=== PATIENT | male | born 1955 | race African-American/Black ===

== ENCOUNTER 2016-09-19 15:30 | Inpatient (IN) | payer OTHER ==
[~2016-09-19] VITALS: Ht 182.9 cm; Wt 91.3 kg
[~2016-09-19 15:30] MED LIST: CHOL100043 PO; HYDR-4150 PO; HYDR-656 PO; MIRT7.5T8 PO; MULT1CAP33 PO; MUSCLE RELAXER; PRED50TA PO; PTSD MED
[2016-09-19 15:42] VITALS: PULSE 115; RESP 20; O2SAT 98
--- NOTE | 2016-09-19 16:03 | ED.REPORT ---
HPI-General Illness Date of Service Sep 19, 2016 ED Provider: Percy Mixon MD 61 y/o male with a hx of anxiety, PTSD, meth-use and chronic back pain presents to the ED complaining of shortness of breath, onset just prior to arrival. Associated sx include fever for "a couple of weeks", cough with green sputum, fatigue, dysuria, nausea and vomiting. The pt states "I have to make myself vomit". Denies rash and injecting drugs. He used Meth prior to arrival. He can not recall how he arrived at the ED. Nursing Notes Stated Complaint: SUICIDAL Chief Complaint: Psychiatric Complaint Nursing Notes Reviewed: Yes (Farmol meds not reconciled) Allergies: Coded Allergies: Sulfa (Sulfonamide Antibiotics) (Verified Allergy, Intermediate, itch, ) Uncoded Allergies: CONTRAST DYE (Allergy, Severe, throat swelling, 11/08/14) Scheduled Cholecalciferol (Vitamin D3) (Vitamin D) 1,000 Unit Tablet 0 PO DAILY Mirtazapine (Mirtazapine) 7.5 Mg Tablet 0 PO HS Multivitamin (Multivitamins) 1 Each Capsule 1 EACH PO DAILY Prednisone (PredniSONE) 50 Mg Tablet 50 MG PO DAILY Scheduled PRN Hydrocodone/Acetaminophen ([place] 5-325 Tablet) 1 Each Tablet 1 EACH PO q4- 6hours PRN PRN For Pain hydrOXYzine Hcl (HydrOXYzine Hcl) 25 Mg Tablet 0 PO HS PRN PRN For Nausea Miscellaneous Medications ([Muscle Relaxer]) ([Ptsd Med]) General Time Seen by MD: 15:53 Chief Complaint Other (unclear, patient poor historian - he does complain of cough) Hx Obtained From: Patient Arrived By: Walk-in Sudden in Onset?: No Onset Occurred: Just prior to arrival Symptom Duration: Since onset Location: : Back (Chronic) Quality: Painful Radiation: : Does not radiate Severity: Current: Moderate Severity: Maximum: Moderate Recent Healthcare: No recent doctor visit Similar Sx Previous: No Past Medical History Past Medical History Anxiety, [facility] HepC Reports: Depression Past Surgical History Denies Smoking History Current Every Day Smoker Social History Drug Use: Meth (smoked today) Ambulatory Status Wheelchair Review of Systems Full Review of Systems Constitutional: Reports: Fatigue, Fever Respiratory: Reports: Prod cough, green, Shortness of breath GI: Reports: Nausea, Vomiting Male: Reports Dysuria Musculoskeletal: Reports: Back pain (chronic) Skin: Denies Rash Complete sys rev & neg: except as marked. Physical Exam Vital Signs Vital Signs Date Time Temp Pulse Resp B/P Pulse Ox O2 Delivery O2 Flow Rate FiO2 09/19/16 21:58 37.6 101 18 107/60 97 Room Air 09/19/16 19:03 95 111/65 09/19/16 19:01 37.6 97 Room Air 09/19/16 15:42 39 115 20 98 Room Air Initial VS: Reviewed, Vital signs abnormal Head / Eyes: Atraumatic, Normocephalic Neck: Supple, Full range of motion Extremities: Vascular intact, Neuro intact, No swelling, No tenderness Skin: Warm, Dry, No cyanosis Neurologic: Alert General/Constitutional: Awake Behavior: Positive: Anxious, Restless Appearance / Presentation: Positive: Cachectic Pt is fidgety and restless with increased psychomotor activity and not making eye contact. Bizzare behavior, inappropriate social skills, does not make eye contract. Makes sudden odd movements and flops around the exam room dramatically. Appears to respond to internal stimuli and has conversations with himself once we leave exam room. Curses and shouts inappropriately and at random intervals. Disorganized historian but gives credible but limited answers upon pressing. Oriented to time and place. Too agitated to place an IV. The restless is consistent with methamphetamine toxicity (patient admits to smoking, denies IVDA) Nose: Positive: Discharge nasal bloody (mild) Respiratory / Chest: Atraumatic, Breath sounds NL, Breath sounds = bilat Coughing Cardiovascular: Regular rhythm, Heart sounds NL, No gallop, No murmurs, No rubs Heart Rate / Rhythm: Positive: Tachycardia No edema Skin: Atraumatic, Color NL, No rash, Warm, Dry, Intact No track mckee or overt cellulitis. Psychiatric: Not homicidal, No hallucinations Abnormal Mood/Affect: Positive: Inappropriate, Labile Abnormal Thinking / Perception: Positive: Hallucinations, auditory (suspected, patient appears to be conversing with himself), Insight abnormal, Judgment abnormal Limited insight. Acting strange, consistent with meth intoxication. Responding to internal stimuli and having conversations with himself that consist of 4 letter words. Patient does not endorse SI or HI Interpretation & Diagnostics Lab Results Interpretation Result Diagram: 09/19/16 1735 09/19/16 1735 Test 09/19/16 17:35 White Blood Count 13.7th/mm3 (3.8-10.1) Red Blood Count 5.39mil/mm3 (4.40-5.80) Hemoglobin 13.6g/dL (13.8-17.2) Hematocrit 39.5% (41.0-50.0) Mean Corpuscular Volume 73.3fL (81-100) Mean Corpuscular Hemoglobin 25.2pg (27.0-35.0) Mean Corpuscular Hemoglobin Concent 34.4% (32.0-37.0) Red Cell Distribution Width 14.7% (12.3-15.4) Platelet Count 369bil/L (150-400) Neutrophils (%) (Auto) 79.8% (40-74) Lymphocytes (%) (Auto) 11.7% (14-46) Monocytes (%) (Auto) 8.0% (4-12) Eosinophils (%) (Auto) 0.1% (0-5) Basophils (%) (Auto) 0.1% (0-3) Sodium Level 130mEq/L (134-144) Potassium Level 3.9mEq/L (3.5-5.2) Chloride Level 94mEq/L (97-108) Carbon Dioxide Level 21mmol/L (18-29) Blood Urea Nitrogen 15mg/dL (6-24) Creatinine 0.75mg/dL (0.76-1.27) Estimat Glomerular Filtration Rate 113mL/min (>59) Glucose Level 104mg/dL (60-99) Lactic Acid Level 1.1mmol/L (0.4-2.0) Calcium Level 9.5mg/dL (8.5-10.1) Total Bilirubin 0.9mg/dL (0.0-1.2) Aspartate Amino Transf (AST/SGOT) 19U/L (0-50) Alanine Aminotransferase (ALT/SGPT) 12U/L (0-44) Alkaline Phosphatase 98U/L (25-160) Total Protein 7.8g/dL (6.4-8.4) Albumin 3.8g/dL (3.4-5.0) Thyroid Stimulating Hormone (TSH) 0.718uIU/mL (0.450-4.500) X-Ray Chest Interpretation Chest Xray Interpretation: IMPRESSION: Normal for age, source of fever is not seen. Dictated by: Gray Jacques M.D. on 09/19/2016 at 17:00 Approved by: Gray Jacques M.D. on 09/19/2016 at 17:01 View: Portable, 1 view Interpretation / Wet Read by: Interpret - Radiologist Procedures Femoral Blood Draw Time: 1817 Skin prep: Chlorhexidine Re-Eval/Medical Decision Med Decision/Clinical Course This is a 61-year-old male presented to triage (it is not clear how he got here by what route) as agitated restless and off and was brought back to her room. He complains of a cough, but he is very disorganized, restless, pacing individual. He admits to taking some meth before coming in, he reports he smokes and does not inject. He has hacking cough present but is not tachypneic or dyspneic. He is cachectic and frail. He talks about as a [facility], but is again a very challenging historian to get much information. His initial vitals suggest a low-grade temperature, but were challenging to obtain. Because of the possible fever, because of his clinical intoxication, and his hacking cough, attempted to place an IV-but the patient certainly too agitated permit this. Ultimately he received chemical sedation with 2 lorazepam , 5 mg's a Haldol-and was properly sedated. At this point IV was placed. Repeat vitals were obtained, and no fever was identified. Chest x-rays obtained is negative for infiltrate. Blood work revealed marginal leukocytosis , this could be simply the methamphetamines, could be marginal signs of infection-again no armando infiltrate is evident. His labs were otherwise normal. The patient remained sedated but stable throughout. DESK MONITOR has been obtaining [facility] as obtain a [facility] list. However the patient still sedated after 7 hours, still sleeping and not able to give a history. At this point is being turned over to oncoming provider pending further metabolization and reevaluation. Serial vitals have failed to demonstrate a temperature. I am not finding evidence of a bacterial infection or acute medical issue. As a strong suspicion that his psychosis and agitation are secondary to substance abuse, but the bottom line is still need reevaluation to see if he is clearing over time and to allow better assessment. Source of Hx: Old records Time of Eval: 17:30 Patient Status: Condition improved Re-Evaluation/Progress Note: Sleeping. Repeat vitals normal - no temp, nl HR Time of Eval: 20:45 Re-Evaluation/Progress Note: Still sleeping Counseled Regarding: Diagnosis, Lab results, Need for follow-up, When/why to return to ED Discharge & Departure Shift Change Sign-Out Patient Care Transferred: Yes Discussed Complaint(s): Yes Laboratory Evaluation: Back, reviewed by me (blood cultures pending) Imaging Studies: Imaging discussed Primary Impression: Psychosis Psychosis type: unspecified psychosis type Qualified Code: F29 - Unspecified psychosis not due to a substance or known physiological condition Additional Impressions: Methamphetamine abuse URI (upper respiratory infection) URI type: unspecified URI Qualified Code: J06.9 - Acute upper respiratory infection, unspecified Disposition: Home Discharge Condition All VS Reviewed: Yes Referrals: OTHER,PHYSICIAN (PCP) (Family) Care Transferred to: Dr. Tran Care Transferred at: 23:00 Scribe Attestation Portions of this note were transcribed by Chasity Parker. I, , personally performed the history, physical exam and medical decision-making;I reviewed and confirmed the accuracy of the information in the transcribed note. Signed by Swati Zamarripa. 09/19/16 22:57 Percy Mixon MD Sep 19, 2016 16:02 Chasity Parker Sep 19, 2016 16:10
[2016-09-19] MEDS ORDERED: 0.9% Sodium Chloride 1,000 ML IV ONE (16:05)
[2016-09-19] MEDS ORDERED: Haloperidol 5 mg/mL Inj IM ONE (16:10)
--- NOTE | 2016-09-19 17:02 | DRSVH ---
PROCEDURE: X-RAY CHEST ONE VIEW, PORTABLE ([id number]) INDICATIONS: fever TECHNIQUE: One view of the chest was acquired. COMPARISON: None. FINDINGS: Surgical changes and devices: None. Lungs and pleura: No pleural effusions or pneumothorax. Lungs are clear. Mediastinum: Mediastinal contours appear normal. Heart size is normal. Bones and chest wall: No suspicious bony lesions. Overlying soft tissues appear unremarkable. IMPRESSION: Normal for age, source of fever is not seen. Dictated by: Gray Jacques M.D. on 09/19/2016 at 17:00 Approved by: Gray Jacques M.D. on 09/19/2016 at 17:01
[2016-09-19 17:59] LABS: BASOPHILS % (AUTO) 0.1 % (0-3); EOSINOPHILS % (AUTO) 0.1 % (0-5)
[2016-09-19 18:01] LABS: Mean Corpuscular Hemoglobin 25.2 pg (27.0-35.0); Mean Corpuscular Volume 73.3 fL (81-100); NEUTROPHILS % (AUTO) 79.8 % (40-74); Platelet Count 369 bil/L (150-400)
[2016-09-19 19:01] VITALS: O2SAT 97
[2016-09-19 19:03] VITALS: BP 111/65; PULSE 95
[2016-09-19 21:58] VITALS: BP 107/60; PULSE 101; RESP 18; O2SAT 97
[2016-09-20 02:34] VITALS: BP 112/66; PULSE 99; RESP 18; O2SAT 99
[2016-09-20 04:13] VITALS: BP 105/65; PULSE 84; RESP 18; O2SAT 99
[2016-09-20 06:01] VITALS: BP 104/68; PULSE 81; RESP 18; O2SAT 97
[2016-09-20] MEDS ORDERED: Azithromycin Inj 500 MG in Dextrose 5% w/Vial Mate 250 ML IV ONE (07:35)
[2016-09-20] MEDS ORDERED: cefTRIAXone Inj 2,000 MG in Dextrose 5% Minibag Plus 50 ML IV ONE (07:35)
[2016-09-20 08:01] LABS: BASOPHILS % (AUTO) 0.2 % (0-3); EOSINOPHILS % (AUTO) 0.4 % (0-5); Mean Corpuscular Hemoglobin 25.8 pg (27.0-35.0); Mean Corpuscular Volume 76.6 fL (81-100); NEUTROPHILS % (AUTO) 77.6 % (40-74); Platelet Count 347 bil/L (150-400)
[2016-09-20 08:26] LABS: APPEARANCE,URINE HAZY (CLEAR,HAZY); COLOR,URINE YELLOW (YELLOW); OCCULT BLOOD,URINE NEGATIVE (NEGATIVE); UROBILINOGEN,URINE NORMAL (NORMAL)
[2016-09-20 12:42] VITALS: BP 99/63; PULSE 91; O2SAT 98
[2016-09-20] MEDS ORDERED: Benzocaine-Menthol Lozenge 2/Pkg PO PRN (13:50)
[2016-09-20] MEDS ORDERED: Magnesium Hydroxide 10 mL Oral Concentration PO PRN (13:50)
[2016-09-20] MEDS ORDERED: Alum-Mag Hydrox-Simeth 30 mL Suspension PO PRN (13:50)
[2016-09-20] MEDS ORDERED: LORazepam 1 mg Tablet PO PRN (13:55)
[2016-09-20 20:36] VITALS: BP 106/71; PULSE 94; RESP 20
[2016-09-21 00:26] VITALS: BP 102/62; PULSE 81; RESP 22
[2016-09-21] MEDS ORDERED: HYDR-4003 PO (07:14)
[2016-09-21 12:18] VITALS: BP 113/71; PULSE 91; RESP 14
[2016-09-21 13:00] VITALS: BP 113/71; PULSE 91; RESP 14
[2016-09-21] MEDS: Thiamine 100 mg/mL 2 mL Inj IM SCH (15:42)
[2016-09-21] MEDS ORDERED: LIDO15CR9 TP (18:23)
[2016-09-21] MEDS ORDERED: HYDR50TA76 PO (18:23)
[2016-09-21] MEDS ORDERED: MULT-620 PO (18:23)
[2016-09-21] MEDS ORDERED: NAPR250T PO (18:23)
[2016-09-21] MEDS ORDERED: SILD100T PO (18:23)
[2016-09-21] MEDS ORDERED: MIRT30TA6 PO (18:23)
[2016-09-21 20:14] VITALS: BP 119/80; PULSE 86; RESP 14
--- NOTE | 2016-09-21 20:14 | HP ---
[address] [address] HISTORY AND PHYSICAL PATIENT: REINA KRUSE : 1955 MR#: [id number] ADMIT: 09/20/2016 JOB ID: [id number] DATE OF ADMISSION: 09/20/2016 IDENTIFICATION OF PATIENT: The patient is a 61-year-old male from [facility], who was admitted on a voluntary basis through the emergency department with significant concern of suicidal ideation with plan and intent to step in front of traffic or to use his guns that are evidently put away. The patient reportedly presented under the influence of methamphetamine with open identification of usage on a daily basis over the past 1-2 years, also concomitant usage of THC, and alcohol, drinking 4-5 half pints per day. CHIEF COMPLAINT: "I really do not want to talk about it." This is per patient report. HISTORY OF PRESENT ILLNESS: As stated above, the patient is a 61-year-old male who was admitted on a voluntary basis due to a significant altered mental status, concerns of safety including suicidal ideation with intent and plan, per his own report, with social science professor through the emergency department. The patient has been identified as homeless over the past 8-9 months. He [place] He states that he is , but his has placed a restraining order. He did admit to usage of methamphetamine on a daily basis with inhalant usage primary. No IV injection. He denies any history of heroin or further opiate abuse. He did admit to consuming 4-5 half pints per day. He reports his last drink was within the past 24 hours. His U tox screen was positive for methamphetamine. In reviewing further history, the patient evidently is 90% connected with service benefits. He does have a history of previous enlistment in the [employer]. He [facility] with [facility] contact in November 2015, per social science professor report. On interview with myself, the patient essentially was unwilling to complete the exam. He made the repeated identification that he has already spoken to nurses. He does not want to talk about the details. He reportedly has been sleeping in his room since his arrival and has been med compliant. PAST MEDICAL HISTORY: Substantial for allergies to: 1. CONTRAST DYE. 2. CONTRAST MEDIA. 3. SULFA. He reportedly has a history of back injury with chronic pain. CURRENT MEDICATIONS: Include: 1. Hydrocodone 5/325 one tablet q.4 h. p.r.n. 2. Remeron 7.5 mg at h.s. 3. Hydroxyzine 25 mg p.r.n. 4. Prednisone 50 mg daily. 5. Vitamin D 3 1000 units daily. 6. Prazosin 1 mg q.h.s. 7. Harvoni 90 mg tablets one daily. 8. Sovaldi 40 mg tablets one daily. PAST MEDICAL HISTORY: He reportedly has a previous history of hepatitis C, per report. Other medical history was reviewed through documentation through the ED and I agree with findings. PAST PSYCHIATRIC HISTORY: Substantial for [facility] connections. Last visit in November 2015. He reportedly has a previous history of PTSD, depression and substance use issues. SOCIAL HISTORY: As identified above. The patient does admit to daily usage of nicotine, 1 to 1-1/2 packs per day as well. Abuse history was not reviewed. Trauma history not reviewed. FAMILY HISTORY: Deferred. DEVELOPMENTAL HISTORY: Deferred. MENTAL STATUS EXAM: General appearance: The patient made no significant eye contact. He was unwilling to be interviewed. He identified the above history and much of the information was gathered through charting. Releases will be signed. His speech was limited. Mood was depressed with anxious features. His affect was blunted. His thought process shows no evidence of racing thoughts, flight of ideas, loose or disconnected thinking. Thought content: There was open identification of suicidal ideation, per staff report, with intent and plan of walking into traffic or using a gun which evidently is locked up. There was no evidence of paranoia, hallucinations, delusions. He was alert and oriented to time and place. His attention and concentration are poor. Insight and judgment are poor. IMPRESSIONS: Anna I 1. Postraumatic stress disorder, chronic. 2. Major depressive disorder, recurrent type, nonpsychotic. 3. Polysubstance use disorder including methamphetamine and THC. 4. Alcohol use disorder, moderate to severe. 5. Rule out substance-induced mood disorder. Anna IIDeferred. Anna III1. History of chronic pain. 2. History of hepatitis C. Anna IVStressors are noted for economic difficulties, unemployment, chronic mental health issues and substance use issues. Anna VGlobal assessment of functioning current 25. PLAN: 1. Recommendation is for continuation of scheduled doses of Seroquel 50 mg b.i.d., 100 mg q.4 h. p.r.n. for agitation. 2. Ativan to scheduled dosing of 1 mg t.i.d. for two days, then 1 mg b.i.d. for two days, then 1 mg q.h.s. for two days, for tapering potential alcohol withdrawal. 3. Recommendations for releases to be signed for the [facility] for further review of his current medications with possible reintroduction of doses of Remeron, Prazosin if proven to be beneficial in the past. MTDD
[2016-09-21] MEDS: LORazepam 1 mg Tablet PO SCH (20:17)
[2016-09-22] MEDS: Thiamine 100 mg/mL 2 mL Inj IM SCH (08:30)
[2016-09-22] MEDS: LORazepam 1 mg Tablet PO SCH ×3 (08:38→20:34)
[2016-09-22] MEDS: Lidocaine Topical 5% Patch TOPICAL SCH (13:25)
[2016-09-22] MEDS: Fluticasone 0.05% 15 Spray/2 Gm 16 Gm Nasal Spray NASAL SCH ×2 (13:25→20:34)
[2016-09-22] MEDS: Amoxicillin-Clav 875-125 mg Tablet PO SCH ×2 (13:26→20:34)
[2016-09-22 13:30] VITALS: BP 114/78; PULSE 71; RESP 16
--- NOTE | 2016-09-22 14:16 | PROG NOTE ---
[address] [address] PROGRESS NOTE PATIENT: REINA KRUSE : 1955 MR#: [id number] ADMIT: 09/20/2016 JOB ID: [id number] DATE: 09/22/2016 CHIEF COMPLAINT: "I really need something for my sinuses, I have had green sputum for over a month." This per patient report. HISTORY OF PRESENT ILLNESS: As stated above, the patient did identify significant concern of possible sinus infection. He indicated that he has had significant green mucous discharge with periodic fevers over the past month. I have agreed to initiate doses of Flonase and Augmentin. In meeting with myself, the patient was very brief. He indicated that he wants to be back on his medications previously prescribed through the [facility]. He indicated that he has no intent at transferring his service of care from the [facility] to local options. He states that he will commute in for appointments as needed. He reports that he did get a good night of sleep. He has participated in mental activities at this time. He is aware that we are looking at possible options of housing based on his current status of homelessness and he is willing to consider options of obtaining half-way care in [place]. He readily identifies usage of methamphetamine, cocaine recently, but denies any intent or desire to undergo a chemical dependency treatment. OBJECTIVE: On mental status examination, he makes intermittent eye contact. He is somewhat irritable on approach. His speech is pressured. His mood is dysphoric. His affect is irritable, labile. His thought process shows no evidence of racing thoughts, flight of ideas, loose or disconnected thinking. Thought content: He denied any evidence of current suicidal ideation, intent or plan. When he was admitted, he did have significant thoughts of taking an overdose, using a gun or jumping off a bridge. He denies any active homicidal ideation. He denies any active hallucinations, delusions. He was alert, oriented to time and place. His attention and concentration are fleeting. Insight and judgment are poor. PHYSICAL EXAM: Vital signs of current. Temperature is 37, pulse 86, respirations 14, BP 119/80. MEDICATION REVIEW: Includes: 1. Ativan taper due to contributory history of probable alcohol withdrawal. He is on t.i.d. for another 24 hours with intent to taper thereafter. 2. Vitamin B 1 injections 100 mg. He is on day two. 3. Seroquel 100 mg q.4 hours p.r.n. 4. Seroquel 50 mg b.i.d. ASSESSMENT: AXIS I 1. Posttraumatic stress disorder, chronic. 2. Polysubstance use disorder including both methamphetamine and cocaine. 3. Alcohol use disorder, moderate, in a controlled setting. 4. Rule out alcohol withdrawal, uncomplicated. AXIS II Deferred. AXIS III 1. History of hepatitis C. 2. Chronic sinusitis. AXIS IV Stressors are noted for economic difficulties, loss of primary support system, homelessness, chronic substance abuse and mental health issues. AXIS V Global assessment of functioning of current 35. PLANS: 1. Recommendations for introductions of Flonase 1 spray b.i.d. and Augmentin 875 mg b.i.d. 2. Recommendations for reintroduction of Remeron 15 mg q.h.s., with further titration to follow. 3. Continuation of Ativan taper to avoid alcohol withdrawal. 4. Continuation of thiamine with one more injection beginning tomorrow. 5. Discontinuation of scheduled doses of Seroquel. 6. Continuation of p.r.n. doses of Seroquel for agitation. 7. Recommendations for consultation with case management for referrals to the [facility] to follow. [facility]
[2016-09-23] MEDS: LORazepam 1 mg Tablet PO SCH ×3 (05:04→21:41)
[2016-09-23] MEDS: Fluticasone 0.05% 15 Spray/2 Gm 16 Gm Nasal Spray NASAL SCH ×2 (08:28→21:41)
[2016-09-23] MEDS: Amoxicillin-Clav 875-125 mg Tablet PO SCH ×2 (08:28→21:40)
[2016-09-23] MEDS: Lidocaine Topical 5% Patch TOPICAL SCH (08:30)
[2016-09-23] MEDS: Thiamine 100 mg/mL 2 mL Inj IM SCH (08:31)
[2016-09-23 13:02] VITALS: BP 115/77; PULSE 85; RESP 16
--- NOTE | 2016-09-23 13:47 | PROG NOTE ---
[address] [address] PROGRESS NOTE PATIENT: REINA KRUSE : 1955 MR#: [id number] ADMIT: 09/20/2016 JOB ID: [id number] DATE: 09/23/2016 CHIEF COMPLAINT: "I think it's a good idea." This is per patient report. This is in patient's reference to going on to chemical dependency treatment. HISTORY OF PRESENT ILLNESS: As stated above, the patient was in agreement of advancing into a chemical dependency treatment program. He indicated, however, that he would preferred to go to [place] via the [facility], [facility]. He was given options of consideration of referrals for a teen challenge in [place] as well and indicated that he had spoken to the caser shoe parts about such last evening. He was requesting re-initiation of doses of Vicodin. However, I have informed him and nursing staff that this was discontinued through the [facility] and I would not authorize. He was given options of Lidoderm patch and agreed to implement. OBJECTIVE: On mental status examination, he makes no significant eye contact. He continues to be mildly irritable and clearly is going through continuation of withdrawal with noted shaking, nausea, and at times he does get chills as his reference. His mood is notably depressed. Affect is blunted. His thought process shows no evidence of racing thoughts, flight of ideas, loose or disconnected thinking. His thought content, he denied any evidence of expressed suicidal intent or plan at this time. He indicated that he is open to advancing into chemical dependency treatment and that it would keep him off the streets. He denied any active hallucinations, delusions. He was alert, oriented to time and place. Attention and concentration are fair. Insight and judgment are poor. PHYSICAL EXAM: Vital signs of current. Temperature is 36.8, pulse 85, respirations 16, BP 115/77. MEDICATION REVIEW: Includes: 1. Tapering doses of Ativan at 1 mg b.i.d. 2. Remeron 15 mg q.h.s. 3. Flonase 1 spray b.i.d. 4. Augmentin 875 mg b.i.d. 5. Lidocaine patch daily. 6. Thiamine IM 100 mg daily with discontinuation as of today. ASSESSMENT: AXIS I 1. Posttraumatic stress disorder, chronic. 2. Alcohol use disorder moderate to severe in a controlled environment. 3. Alcohol withdrawal, uncomplicated. AXIS II Cluster B personality traits. AXIS III 1. History of hepatitis C. 2. Chronic pain. 3. Sinus infection. AXIS IV Stressors are noted for chronic substance abuse, alcohol use and chronic mental health issues. AXIS V Global assessment of functioning of current 35. PLANS: 1. Recommendations for continuation of tapering doses of Ativan. 2. Recommendations for titration of Remeron beginning tomorrow at 30 mg q.h.s. 3. Continuation of pursuit of chemical dependency treatment options through either the [facility] system or teen challenge to follow. 4. Discontinuation of thiamine with transition to oral doses.
[2016-09-23] MEDS: hydrOXYzine Pamoate 25 mg Capsule PO PRN (21:47)
[2016-09-24] MEDS: Fluticasone 0.05% 15 Spray/2 Gm 16 Gm Nasal Spray NASAL SCH ×2 (08:30→20:37)
[2016-09-24] MEDS: Amoxicillin-Clav 875-125 mg Tablet PO SCH ×2 (08:30→20:37)
[2016-09-24] MEDS: LORazepam 1 mg Tablet PO SCH ×2 (08:30→20:37)
[2016-09-24] MEDS: Lidocaine Topical 5% Patch TOPICAL SCH (08:32)
[2016-09-24 13:22] VITALS: BP 118/82; PULSE 96; RESP 16
--- NOTE | 2016-09-24 15:33 | PROG NOTE ---
[address] [address] PROGRESS NOTE PATIENT: REINA KRUSE : 1955 MR#: [id number] ADMIT: 09/20/2016 JOB ID: [id number] DATE: 09/24/2016 CHIEF COMPLAINT: "I would prefer to go to [facility], it is the only one that I have successfully graduated from before. I feel most comfortable around veterans." HISTORY OF PRESENT ILLNESS: As stated above, the patient did identify that he is hopeful that we can transition through chemical dependency treatment at [facility]. A call has been placed with the bottle caser. He did indicate that he is open to alternatives including [facility] of [place] as well but he indicates that he would prefer [facility] first. He reportedly has been participating in activities on the unit. He continues to experience some difficulties with mild withdrawal sensations including hot and cold spells. His vital signs remained consistent and no significant elevation noted. He is on a continuation of tapering doses of Ativan. OBJECTIVE: On mental status examination, he was cooperative, polite. He maintained good eye contact. His speech was of normal tone, frequency and volume. His mood is depressed. His affect is congruent. His thought process shows no evidence of random flight of ideas, loose or disconnected thinking. Thought content: He admitted to fleeting thoughts of suicide when thinking about leaving the hospital. He reports that he would not do anything in the hospital setting. His mood is depressed. His affect is congruent. His thought process shows no evidence of racing thoughts, flight of ideas, loose or disconnected thinking. Thought content: He denies any evidence of current homicidal ideation. He admits to continuation of difficulties with some suicidal thoughts as noted. He denies any active hallucinations, delusions. He was alert, oriented to time and place. Attention and concentration intact. Memory intact in the short term, termite renewal inspector, recent. Insight and judgment are fair. PHYSICAL EXAM: Vital signs are current. Temperature is 36.2, pulse 96, respirations 16, BP 118/82. MEDICATION REVIEW: Includes: 1. Ativan 1 mg b.i.d. on a continuation of taper. 2. Remeron 15 mg q.h.s. 3. Thiamine 100 mg daily. 4. Augmentin 875 mg b.i.d. 5. Flonase 1 puff b.i.d. ASSESSMENT: AXIS I 1. Posttraumatic stress disorder, chronic. 2. Major depressive disorder, recurrent type, nonpsychotic. 3. Alcohol use disorder in a controlled setting, moderate to severe. 4. Polysubstance use disorder including methamphetamine and cocaine. AXIS II Deferred. AXIS III History of sinus infection. AXIS IV Stressors are noted for transition of life, chronic substance use, alcohol use and mental health disorder. AXIS V Global assessment of functioning of current 30. PLANS: 1. Recommendations for continuation of taper of Ativan. 2. Continuation of Remeron with increased doses to 30 mg tonight. 3. Discontinuation of p.r.n. doses of Seroquel. 4. Continuation of pursuit of chemical dependency treatment per [facility] and referrals system. Calls have been placed. Hopefully things will be arranged by Tuesday of next week.
[2016-09-25] MEDS: LORazepam 1 mg Tablet PO SCH ×2 (08:11→20:08)
[2016-09-25] MEDS: Fluticasone 0.05% 15 Spray/2 Gm 16 Gm Nasal Spray NASAL SCH ×2 (08:12→20:08)
[2016-09-25] MEDS: Amoxicillin-Clav 875-125 mg Tablet PO SCH ×2 (08:12→20:09)
[2016-09-25] MEDS: Lidocaine Topical 5% Patch TOPICAL SCH ×2 (08:21→20:10)
--- NOTE | 2016-09-25 13:29 | PROG NOTE ---
[address] [address] PROGRESS NOTE PATIENT: REINA KRUSE : 1955 MR#: [id number] ADMIT: 09/20/2016 JOB ID: [id number] DATE: 09/25/2016 CHIEF COMPLAINT: "I am supposed to talk to them at 9 o'clock on Tuesday. This is per patient report in reference to speaking with [place]. I have reviewed with the patient that the resident service coordinator for [facility], Dilan Dorman, indicating that the disease case manager, will be placing a call at 9 o'clock on Tuesday to inquire about possibility of advancement. The patient states that he is hopeful and stating that he is still open to options including [facility] in [place] if there are no beds available. He has requested with nursing staff re-initiation of doses of Prazosin based on beneficial effects of the medication in the past as well. He indicated that last evening he was able to sleep through the night. Denied any evidence of current side effects. Denied any difficulties with nightmare activity. He reportedly has indicated that he would like to use the Lidoderm patch only as a p.r.n., not as a scheduled as well. OBJECTIVE: On mental status examination, the patient was bright, cooperative, interactive. He maintained good eye contact throughout. He indicated that his withdrawal sensations are decreasing and appreciated the continuation of taper of Ativan. He is currently dispensed 1 mg b.i.d. with last dose noted tonight and then switch over to 1 mg q.h.s. He denies any evidence of acute distress. His speech was of normal tone, frequency and volume. His mood was neutral. Affect was congruent. His thought process shows no evidence of current suicidal or homicidal ideation. No evidence of active hallucinations, delusions. He was alert, oriented to time and place. Attention and concentration intact. Memory intact in the short term, senior care, recent. Insight and judgment are fair. PHYSICAL EXAM: Vital signs are current. Temperature is 36.2, pulse 96, respirations 16, BP 118/82. MEDICATION REVIEW: Includes: 1. Ativan 1 mg b.i.d., last dose tonight with transition to 1 mg q.h.s. beginning on the . 2. Lidocaine patch 1 patch daily. 3. Remeron 30 mg q.h.s. 4. Thiamine 100 mg daily. 5. Flonase 1 spray b.i.d. 6. Augmentin 875 mg 1 tablet b.i.d. 7. P.r.n. usage of Vistaril. ASSESSMENT: AXIS I 1. Posttraumatic stress disorder, chronic. 2. Major depressive disorder, recurrent type, nonpsychotic. 3. Polysubstance use disorder including methamphetamine and THC. 4. Alcohol use disorder moderate to severe. 5. Substance induced mood disorder. AXIS II Deferred. AXIS III 1. History of chronic pain. 2. History of hepatitis C. AXIS IV Stressors are noted for economic difficulties, unemployment, chronic mental health issues and substance abuse. AXIS V Global assessment of functioning of current 30. PLANS: 1. Recommendations for re-initiation of Prazosin 2 mg q.h.s. 2. Discontinuation of Seroquel. 3. Continuation of taper and eventual discontinuation of Ativan. 4. Follow up call to be placed with the [facility] on Tuesday for clarification of possible bed availability.
[2016-09-25] MEDS ORDERED: guaiFENesin 20 mg/mL 10 mL Syrup PO PRN (21:20)
[2016-09-26] MEDS: Amoxicillin-Clav 875-125 mg Tablet PO SCH ×2 (09:20→20:56)
[2016-09-26] MEDS: Fluticasone 0.05% 15 Spray/2 Gm 16 Gm Nasal Spray NASAL SCH ×2 (09:23→20:56)
[2016-09-26] MEDS: hydrOXYzine Pamoate 25 mg Capsule PO PRN ×3 (11:51→20:59)
[2016-09-26] MEDS: Multivit-Miner-Folic Acid-Iron Tablet PO SCH (11:51)
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
[2016-09-26 13:48] VITALS: BP 126/83; PULSE 101; RESP 16
[2016-09-26] MEDS: LORazepam 1 mg Tablet PO SCH (20:57)
[2016-09-26] MEDS: TerBINafine 1% 15 Gm Cream TOPICAL SCH (20:57)
[2016-09-26] MEDS: Lidocaine Topical 5% Patch TOPICAL SCH (20:58)
[2016-09-27 08:15] VITALS: BP 107/72; PULSE 81; RESP 18
[2016-09-27] MEDS: Fluticasone 0.05% 15 Spray/2 Gm 16 Gm Nasal Spray NASAL SCH ×2 (08:27→20:54)
[2016-09-27] MEDS: Amoxicillin-Clav 875-125 mg Tablet PO SCH ×2 (08:27→20:55)
[2016-09-27] MEDS: Multivit-Miner-Folic Acid-Iron Tablet PO SCH (08:27)
[2016-09-27] MEDS: TerBINafine 1% 15 Gm Cream TOPICAL SCH ×2 (08:28→20:55)
--- NOTE | 2016-09-27 18:43 | PROG NOTE ---
[address] [address] PROGRESS NOTE PATIENT: REINA KRUSE : 1955 MR#: [id number] ADMIT: 09/20/2016 JOB ID: [id number] DATE: 09/27/2016 CHIEF COMPLAINT: "I am still having a lot of problems with anxiety throughout the daytime." This is per patient report. HISTORY OF PRESENT ILLNESS: As stated above, the patient openly identified a continuation of factors of anxiety throughout the daytime hours, stating that he feels restless and worried. He also identified some difficulties with random flashbacks. Discussed further titration of his Prazosin. He is open to such. In addition, he identified some worrisome nature in reference to the plans for discharge. Calls have been placed with the [place] [facility] system about referrals to [facility] and my understanding is that they will be looking at potentials of a [id number] evaluation later on today. MENTAL STATUS EXAM: He made intermittent eye contact. He openly identified some continuation of anxiety with worrisome nature about the planning for discharge. His speech is of normal tone, frequency, and volume. His mood is neutral. Affect was congruent. His thought process shows no evidence of racing thoughts, flight of ideas, loose or disconnected thinking. Thought content: He denied any evidence of current suicidal, homicidal ideation. No evidence of paranoia. No evidence of active hallucinations, delusions. He was alert, oriented to person, place, time, situation. Attention and concentration intact. Memory intact in the short term, prison, recent. Insight and judgment are fair. PHYSICAL EXAMINATION: Vital signs are current. Temperature is 36.4, pulse 101, respirations 16, BP 126/83. MEDICATION REVIEW: 1. Ativan 1 mg q.h.s. Last dose to be given tonight. 2. Lamisil cream one application b.i.d. 3. vitamin 1 tab daily. 4. Lidoderm patch one daily p.r.n. 5. Minipress 2 mg q.h.s. 6. Remeron 30 mg q.h.s. 7. Vitamin D 1 100 mg daily. 8. Flonase 1 spray b.i.d. 9. Augmentin 875 mg b.i.d. 10. Vistaril 50 mg q.4 h. p.r.n. ASSESSMENT: [place] I 1. Major depressive disorder, recurrent type. 2. Posttraumatic stress disorder, chronic. 3. Generalized anxiety disorder. 4. Polysubstance use disorder including methamphetamines and opiates. [place] IICluster B personality traits. [place] III1. History of sinus infection. 2. History of chronic pain. [place] IVStressors are noted for chronic substance use issues, chronic mental health issues. [place] VGlobal assessment of functioning current 35. PLAN: 1. Recommendation is for discontinuation of Vistaril at patient request. He currently indicates that he feels that it is causing more anxiety. 2. Reintroduction of Seroquel 50 mg q.4 h. p.r.n. for anxiety. I have discussed with the patient that ideally he needs to begin using alternative coping skills, that he is not a candidate for any form of benzodiazepine or other addictive substance. 3. Recommendations for continuation of chemical dependency treatment options including [facility] or [facility]. ORALIAD
[2016-09-27] MEDS: LORazepam 1 mg Tablet PO SCH (20:55)
[2016-09-27] MEDS: Lidocaine Topical 5% Patch TOPICAL SCH (21:29)
[2016-09-28] MEDS: Fluticasone 0.05% 15 Spray/2 Gm 16 Gm Nasal Spray NASAL SCH ×2 (08:02→20:37)
[2016-09-28] MEDS: Multivit-Miner-Folic Acid-Iron Tablet PO SCH (08:03)
[2016-09-28] MEDS: TerBINafine 1% 15 Gm Cream TOPICAL SCH ×3 (08:03→20:30)
[2016-09-28] MEDS: Amoxicillin-Clav 875-125 mg Tablet PO SCH ×2 (08:03→20:38)
--- NOTE | 2016-09-28 11:43 | PROG NOTE ---
[address] [address] PROGRESS NOTE PATIENT: REINA KRUSE : 1955 MR#: [id number] ADMIT: 09/20/2016 JOB ID: [id number] DATE: 09/28/2016 CHIEF COMPLAINT: "I had a really bad panic attack this morning." This per patient report. HISTORY OF PRESENT ILLNESS: As stated above, the patient identified that he was experiencing difficulties with anxiety and distress and evidently did receive p.r.n. doses of Seroquel. He indicates that he is feeling much better at this time. He maintained good eye contact throughout. He indicated that he is aware that we are continuing to petition with the [facility] system for possible transfer to [place] for chemical dependency treatment. It is my understanding that the discussion has been held with the social workers at the local office of completing paperwork and applications. The patient currently identifies that he does continue to struggle with anxiety and fears of being discharged knowing that he will ultimately either hurt himself or return back to substances. OBJECTIVE/MENTAL STATUS EXAMINATION: He was quite anxious on approach. He made intermittent eye contact. His speech was of normal tone, frequency, and volume. His mood was anxious. Affect was elevated. His thought process showed no evidence of racing thoughts, flight of ideas, loose or disconnected thinking. Thought content: He denied any evidence of current suicidal, homicidal ideation. He indicated that he could not guarantee that he would not hurt himself if he were to be discharged today indicating that he is fearful that he will either return back to using or walk in front of a vehicle. He denied any active hallucinations, delusions. He was alert, oriented to time and place. Attention and concentration intact. Memory intact in the short term, half-way, recent. Insight and judgment are fair. PHYSICAL EXAMINATION: Vitals signs current: Temperature is 36.5, pulse 81, respirations 18, BP 107/72. MEDICATION REVIEW: Includes: 1. Prazosin 2 mg b.i.d. 2. Seroquel 50 mg q.4 h. p.r.n. 3. Lamisil foot cream one b.i.d. 4. vitamin one tablet daily. 5. Lidoderm patch p.r.n. h.s. 6. Robitussin cough syrup 200 mg q.6 p.r.n. 7. Remeron 30 mg q.h.s. 8. Vitamin B 100 mg daily. 9. Flonase one puff b.i.d. 10. Augmentin 875 b.i.d. ASSESSMENT: AXIS I: 1 1. Posttraumatic stress disorder, chronic. 2. Polysubstance use disorder including methamphetamine/tetrahydrocannabinol. 3. Major depressive disorder, recurrent type, nonpsychotic. AXIS II: Deferred. AXIS III: 1. History of hypertension. 2. History of sinus infection. AXIS IV: Stressors are noted for current economic difficulties. AXIS V: Global Assessment of Functioning current 35. PLANS: 1. Recommendation for continuation of petition for the [facility] placement at [place] for chemical dependency treatment. 2. Continuation of all medications noted with discontinuation of vitamin B 1 based on patient's administration of a vitamin.
[2016-09-28 17:47] VITALS: BP 115/73; PULSE 87; RESP 17
[2016-09-28] MEDS: Lidocaine Topical 5% Patch TOPICAL SCH (20:37)
[2016-09-29] MEDS: TerBINafine 1% 15 Gm Cream TOPICAL SCH ×2 (08:30→20:38)
[2016-09-29] MEDS: Fluticasone 0.05% 15 Spray/2 Gm 16 Gm Nasal Spray NASAL SCH ×2 (08:43→20:37)
[2016-09-29] MEDS: Multivit-Miner-Folic Acid-Iron Tablet PO SCH (08:44)
[2016-09-29] MEDS: Amoxicillin-Clav 875-125 mg Tablet PO SCH ×2 (08:44→20:33)
--- NOTE | 2016-09-29 12:21 | PROG NOTE ---
[address] [address] PROGRESS NOTE PATIENT: REINA KRUSE : 1955 MR#: [id number] ADMIT: 09/20/2016 JOB ID: [id number] DATE: 09/29/2016 CHIEF COMPLAINT: "I talked to my friend and he is going to try and get me into the [facility]." This is per patient report. HISTORY OF THE PRESENT ILLNESS: As stated above, the patient identified that he has spoken with a friend who is in the process of pursuing possible treatment options. The patient did discuss at length with myself and binder caser, GENET, about his current status. He reported that he is aware that the [place] system has no openings in [place] or [place] at this time. He indicated that he would like to know where he is at on the waiting list and indicated that he may have several options of staying with individuals in the community prior to admission. He does report last night was difficult due to the fact that he slept with a nicotine patch. He indicates that he had several nightmares and had a restless night. MENTAL STATUS EXAMINATION: The patient was quite anxious on approach. Troubled by the fact that there are no available options of admission. He indicated that if he had to go back to the streets that he would kill himself. He notes that he would not make it more than a week. His mood is dysphoric. His affect is irritable, labile. His thought process shows some evidence of random tangential statements with negative nature. No evidence of flight of ideas, loose or disconnected thinking. Thought content: He does reference suicidal ideation if he were to be discharged to the street. He denies any homicidal ideation. No evidence of active hallucinations, delusions. He was alert and oriented to time and place. His attention and concentration are poor. Insight and judgment are poor. PHYSICAL EXAMINATION: Vital signs are current. Temperature is 36.2, pulse 87, respirations 17, BP 115/73. MEDICATION REVIEW: Includes: 1. Pravastatin 2 mg b.i.d. 2. Seroquel 50 mg q.4 h. p.r.n. 3. Multivitamin daily. 4. Lidocaine patch p.r.n. daily. 5. Remeron 30 mg q.h.s. 6. Flonase 1 spray b.i.d. 7. Augmentin 875 one b.i.d. ASSESSMENT: AXIS I: 1. Polysubstance use disorder. 2. Posttraumatic stress disorder, chronic. 3. Major depressive disorder, recurrent type, not psychotic. AXIS II: Deferred. AXIS III: 1. Sinus infection. 2. Chronic pain. AXIS IV: Stressors are noted for chronic substance abuse issues, chronic mental health issues. AXIS V: Global Assessment of Functioning, current 35. PLAN: 1. Recommendation for continuation of pursuit of options through the [facility] system. 2. Continuation of pursuit of alternative chemical dependency treatment either through [facility] for [facility]. 3. Continuation of Augmentin for three more days, then discontinue.
[2016-09-29] MEDS: Lidocaine Topical 5% Patch TOPICAL SCH (20:40)
[2016-09-30] MEDS: Multivit-Miner-Folic Acid-Iron Tablet PO SCH (08:39)
[2016-09-30] MEDS: Amoxicillin-Clav 875-125 mg Tablet PO SCH ×2 (08:39→20:15)
[2016-09-30] MEDS: Fluticasone 0.05% 15 Spray/2 Gm 16 Gm Nasal Spray NASAL SCH ×2 (08:40→20:14)
[2016-09-30] MEDS: TerBINafine 1% 15 Gm Cream TOPICAL SCH ×2 (08:51→20:15)
[2016-09-30 10:51] VITALS: BP 110/71; PULSE 94; RESP 16
--- NOTE | 2016-09-30 13:26 | PROG NOTE ---
[address] [address] PROGRESS NOTE PATIENT: REINA KRUSE : 1955 MR#: [id number] ADMIT: 09/20/2016 JOB ID: [id number] DATE: 09/30/2016 CHIEF COMPLAINT: "I guess we will find out." This per patient report in reference to alternative housing options. HISTORY OF THE PRESENT ILLNESS: As stated above, the patient did identify that he is currently working with a staff member to look at possible options of alternative housing and support. He evidently did place calls to [facility] dependency [facility] in the community and all beds were full. The [place] system appears to be full as well for possible options. He was given information on that [facility] through GENET, the ed case manager, and he indicates that he has not yet decided on the programming. He reportedly did indicate that he slept better last night and identified that he did remove his patch prior to such. He reportedly continues on medications including Prazosin, Remeron, p.r.n. doses of Seroquel and shows significant stabilization in general with his mood in the hospital but indicates that he could not be safe outside of the hospital. OBJECTIVE: On mental status examination, he is cooperative, polite. He maintains good eye contact. His speech is limited and at times the patient appears to be somewhat annoyed by various individuals on the unit. His mood is described as alexithymic. His affect is irritable, labile at times. His thought process shows no evidence of racing thoughts, flight of ideas, loose or disconnected thinking. His thought content, he denies any evidence of current suicidal ideation, intent, or plan but could not confirm that he could be safe outside of the hospital. He denies any active hallucinations, delusions. He was alert, oriented to time and place. Attention and concentration limited. Insight and judgment are poor. PHYSICAL EXAMINATION: Vital signs are current. Temperature is 36.2, pulse 87, respirations 17, BP 115/73. MEDICATION REVIEW: Includes: 1. Prazosin 2 mg b.i.d. 2. Seroquel 50 mg q.4 hours p.r.n. 3. Lamisil foot cream one b.i.d. p.r.n. 4. vitamins 1 daily. 5. Remeron 30 mg q.h.s. 6. Flonase 1 puff b.i.d. 7. Augmentin 875 mg b.i.d. ASSESSMENT: AXIS I 1. Major depressive disorder, recurrent type, nonpsychotic. 2. Posttraumatic stress disorder, chronic. 3. Polysubstance use disorder including amphetamines. 4. Alcohol use disorder in remission in a controlled environment. AXIS II Deferred. AXIS III 1. Current sinus infection. 2. History of chronic pain. AXIS IV Stressors are noted for status of homelessness, economic difficulties, chronic mental health issues, substance use issues. AXIS V Global assessment of functioning of current 35. PLAN: 1. Recommendations for continuation of all medications noted. 2. Recommendations for continuation of pursuit of housing options. 3. Continuation of chemical dependency treatment options.
[2016-09-30] MEDS: Lidocaine Topical 5% Patch TOPICAL SCH (21:08)
[2016-10-01] MEDS: Amoxicillin-Clav 875-125 mg Tablet PO SCH ×2 (08:32→20:29)
[2016-10-01] MEDS: Multivit-Miner-Folic Acid-Iron Tablet PO SCH (08:32)
[2016-10-01] MEDS: Fluticasone 0.05% 15 Spray/2 Gm 16 Gm Nasal Spray NASAL SCH ×2 (08:33→20:26)
[2016-10-01] MEDS: TerBINafine 1% 15 Gm Cream TOPICAL SCH ×2 (08:42→20:30)
--- NOTE | 2016-10-01 12:52 | PROG NOTE ---
[address] [address] PROGRESS NOTE PATIENT: REINA KRUSE : 1955 MR#: [id number] ADMIT: 09/20/2016 JOB ID: [id number] DATE: 10/01/2016 CHIEF COMPLAINT: "I guess we are still waiting." This is per patient report. HISTORY OF PRESENT ILLNESS: As stated above, the patient did identify that he is aware that he will continue to have to wait. He was informed by GENET, the test case developer, that there is some information that needs to be completed through [employer] for referral through the [facility] system. He reports that he continues to hear a negative voice in his head telling him that he is no good. He indicates that he knows that he is safe in the hospital but notes that he cannot be safe outside of the hospital. OBJECTIVE: On mental status exam, he remains somewhat despondent, negative, downcast. His speech is of normal tone, frequency, and volume. His mood is depressed. His affect is blunted. His thought process shows no evidence of racing thoughts, flight of ideas, loose or disconnected thinking. Thought content: He denied any evidence of current suicidal ideation, intent, or plan with his current hospitalization, but he indicated that he notes that he cannot be safe outside of the hospital. He denies any active hallucinations, although he says that he hears the voice inside of his head which reminds him of negative people in his life. He denies any visual hallucinations. He was alert, oriented to person, place, time, situation. Insight and judgment are poor. PHYSICAL EXAM: All vital signs are current. Temperature is 36.1, pulse 94, respirations 16, BP 110/71. MEDICATION REVIEW: Includes: 1. Prazocin 2 mg b.i.d. 2. Seroquel 50 mg q.4 h. p.r.n. 3. Lamisil to the feet b.i.d. 4. vitamin. 5. Lidoderm patch one q.8 h. p.r.n. h.s. 6. Remeron 30 mg q.h.s. 7. Flonase 1 puff b.i.d. 8. Augmentin 875 mg b.i.d. ASSESSMENT: AXIS I: 1. Posttraumatic stress disorder, chronic. 2. Major depressive disorder, recurrent type, nonpsychotic. 3. Polysubstance use disorder, including methamphetamine and opiates. AXIS II: Cluster B personality features. AXIS III: 1. History of sinus infection. 2. History of chronic pain. AXIS IV: Stressors are noted for chronic mental health issues, substance use issues. AXIS V: Global Assessment of Functioning of current 38. PLAN: 1. Recommendations for continuation of petition for chemical dependency treatment. The [facility] system is making referrals at this time. 2. Recommendations for continuation of all medications as noted.
[2016-10-01 13:22] VITALS: BP 104/71; PULSE 80; RESP 16
[2016-10-01] MEDS: Lidocaine Topical 5% Patch TOPICAL SCH (20:32)
[2016-10-02] MEDS: Amoxicillin-Clav 875-125 mg Tablet PO SCH ×2 (08:54→20:29)
[2016-10-02] MEDS: Multivit-Miner-Folic Acid-Iron Tablet PO SCH (08:54)
[2016-10-02] MEDS: Fluticasone 0.05% 15 Spray/2 Gm 16 Gm Nasal Spray NASAL SCH ×2 (08:54→20:29)
[2016-10-02] MEDS: TerBINafine 1% 15 Gm Cream TOPICAL SCH ×2 (08:54→20:30)
--- NOTE | 2016-10-02 10:08 | PROG NOTE ---
[address] [address] PROGRESS NOTE PATIENT: REINA KRUSE : 1955 MR#: [id number] ADMIT: 09/20/2016 JOB ID: [id number] DATE: 10/02/2016 CHIEF COMPLAINT: "I really had a struggle last night again with sleep, and it seems like nothing is really helping my anxiety." This is per patient report. HISTORY OF PRESENT ILLNESS: As stated above, the patient identified that last night he had significant difficulties with extreme anxiety, some hypervigilance. He indicated that he feels that the medications simply are not covering his level of anxiety. He does report that he does feel that the Seroquel during the daytime seems to be sufficient covering, 50 mg, and indicates that when he takes it he feels much better. He does report that yesterday he spent some time on the phone and has scheduled an intake with [facility] billing coordinator at 1 p.m. on . He indicates that he is hopeful that they will look at him as a possible candidate. He reports that he remains anxious about the intent of discharge. He indicates that he essentially feels that there is no way that he can not guarantee that he would be safe outside the hospital. He reports that he continues to struggle with feelings of hopelessness, worthlessness. OBJECTIVE: On mental status exam, he was cooperative, polite. He maintained good eye contact. He indicated that he is hopeful that they will look at a transition through [facility] with intake scheduled at 1 p.m. on . His speech is of normal tone, frequency and volume. His mood is neutral. His affect is congruent. His thought process shows no evidence of racing thoughts, flight of ideas, loose or disconnected thinking. Thought content, he readily denies any evidence of suicidal intent or plan with current hospitalization but cannot guarantee his safety outside of the hospital. He denied any active hallucinations or delusions. He continues to express difficulties with flashbacks and nightmares despite titration of prazosin to 2 mg b.i.d. His attention and concentration are intact. His memory intact in the short term, buttermaker continuous churn, recent. Insight and judgment are poor. PHYSICAL EXAMINATION: Vital signs are current. Temperature is 36.5, pulse 80, respirations 16, BP 104/71. MEDICATION REVIEW: Includes: 1. Prazosin 2 mg b.i.d. 2. Seroquel 50 mg q.4 h. p.r.n. 3. Lamisil foot cream b.i.d. 4. vitamin. 5. Lidocaine patch 1 q.h.s. 6. Remeron 30 mg q.h.s. 7. Flonase 1 spray b.i.d. 8. Augmentin 875 mg b.i.d. ASSESSMENT: AXIS I 1. Posttraumatic stress disorder, chronic. 2. Major depressive disorder, recurrent type, nonpsychotic. 3. Polysubstance use disorder including methamphetamine. 4. Alcohol use disorder, in remission in a controlled environment. AXIS II Cluster B personality features. AXIS III 1. History of sinusitis. 2. History of chronic pain. AXIS IV Stressors are noted for chronic mental health issues, chronic substance abuse issues. AXIS V Global Assessment of Functioning current 35. PLAN: 1. Recommendation is for titration of Seroquel to scheduled doses of 100 mg q.h.s. and continuation of p.r.n. 50 mg q.4 h. 2. Continuation of all other medications, same. 3. Continuation of petition with the [facility] system for chemical dependency treatment. Intake scheduled on .
[2016-10-02 12:11] VITALS: BP 114/68; PULSE 79; RESP 16
[2016-10-02] MEDS: Lidocaine Topical 5% Patch TOPICAL SCH (20:29)
[2016-10-03] MEDS: Multivit-Miner-Folic Acid-Iron Tablet PO SCH (08:16)
[2016-10-03] MEDS: TerBINafine 1% 15 Gm Cream TOPICAL SCH ×2 (08:16→20:30)
[2016-10-03] MEDS: Fluticasone 0.05% 15 Spray/2 Gm 16 Gm Nasal Spray NASAL SCH ×2 (08:17→20:53)
[2016-10-03] MEDS: Amoxicillin-Clav 875-125 mg Tablet PO SCH (08:17)
--- NOTE | 2016-10-03 13:10 | PROG NOTE ---
[address] [address] PROGRESS NOTE PATIENT: REINA KRUSE : 1955 MR#: [id number] ADMIT: 09/20/2016 JOB ID: [id number] DATE: 10/03/2016 CHIEF COMPLAINT: "My sciatica is starting to act up." This per patient report. HISTORY OF PRESENT ILLNESS: As stated above, the patient did identify that he is experiencing difficulties with sciatica pain and transmission. He indicates that he continues to look forward to contact with the [facility] system with assessment on of this next week. He did identify that he continues to be stressed that if he were to a discharge he does not know where he would actually go or do and states that he feels that he cannot care for herself outside of the hospital. He reports that he also struggles with significant thoughts of suicide when he begins to think about living on the street. OBJECTIVE: On mental status exam, the patient is in pain at this time. I have indicated usage of heating pad, cold pack. His p.r.n.'s were identified including doses of lidocaine patch, ibuprofen, and Tylenol. Based on his long-term history I would not authorize for any narcotics due to the patient's significant difficulties with addiction. In further review, he has completed a 10 day course of amoxicillin, Augmentin which will be discontinued. We will continue his Flonase spray for now. He has not utilized any Robitussin for quite some time, which will also be discontinued. The patient was cooperative, polite. He openly identified significant fears, anxiety of having to live on the street. His speech is of normal tone, frequency, and volume. His mood is neutral, with anxious features. His affect is congruent. His thought process: He denies any evidence of random flight of ideas, loose or disconnected thinking. His thought content: He readily identifies thoughts of suicide if he were to be discharged from the hospital. There is no evidence of paranoia. No evidence of active hallucinations, delusions. He was alert, oriented to time and place. His attention and concentration intact. Memory intact in the short term, mcfp, recent. Insight and judgment are poor. PHYSICAL EXAMINATION: Vital signs of current: Temperature is 36.0, pulse 79, respirations 16, BP 114/68. MEDICATION REVIEW: Includes Seroquel scheduled 100 mg q.h.s., p.r.n. 50 mg q.4 h. for anxiety, prazosin 2 mg b.i.d., Lamisil cream 1 b.i.d., vitamin 1 daily, lidocaine patch 1 q. h.s., Remeron 30 mg q. h.s., Flonase 1 spray b.i.d. ASSESSMENT: [place] I: 1. Major depressive disorder, recurrent type, nonpsychotic. 2. Post-traumatic stress disorder, chronic. 3. Polysubstance use disorder including methamphetamines, opiates. 4. Alcohol use disorder, in remission in a controlled environment. [place] II: Cluster B personality features. [place] III: 1. History of chronic pain. 2. History of sinus infection, resolved. [place] IV: Stressors are noted for ongoing disturbance of coping, disturbance of primary support system, history of polysubstance use. [place] V: Global Assessment of Functioning of current 35. PLAN: 1. Recommendations for discontinuation of doses of Augmentin. He has completed a 10-day course. 2. Continuation of Flonase for now. 3. Discontinuation of Robitussin cough syrup. 4. Continuation of all medications noted otherwise. 5. Physical therapy consult to be ordered due to the patient's history of chronic pain and recommendations.
[2016-10-03] MEDS: Lidocaine Topical 5% Patch TOPICAL SCH (20:57)
[2016-10-04] MEDS: TerBINafine 1% 15 Gm Cream TOPICAL SCH ×2 (08:12→20:25)
[2016-10-04] MEDS: Fluticasone 0.05% 15 Spray/2 Gm 16 Gm Nasal Spray NASAL SCH ×2 (08:14→20:24)
[2016-10-04] MEDS: Multivit-Miner-Folic Acid-Iron Tablet PO SCH (08:18)
[2016-10-04 11:10] VITALS: BP 113/76; PULSE 90; RESP 18
--- NOTE | 2016-10-04 19:03 | PROG NOTE ---
[address] [address] PROGRESS NOTE PATIENT: REINA KRUSE : 1955 MR#: [id number] ADMIT: 09/20/2016 JOB ID: [id number] DATE: 10/04/2016 CHIEF COMPLAINT: "I am just holding on." This is per patient report. HISTORY OF PRESENT ILLNESS: As stated above, the patient identified that he is aware that he has an intake scheduled for possible advancement to chemical dependency treatment through the [facility] system in [place] at 1 o'clock on . He reportedly has been seen on the unit, participating in various group activities. He indicated that his pain control is actually fairly significant, indicating that he had a visit with staff and is using a heating pad, cold packs and p.r.n. doses of medication including ibuprofen and Tylenol. He denied any evidence of acute distress otherwise. MENTAL STATUS EXAM: He was bright, cooperative, interactive. He denied any evidence of acute difficulties. His speech was of normal tone, frequency, and volume. His mood was neutral. Affect was congruent. Thought process showed no evidence of random flight of ideas, loose or disconnected thinking. Thought content: He denies any evidence of current suicidal ideation, intent, or plan. He continues to perseverate that if he were discharged from the hospital that he would eventually be actively suicidal and would be unsafe. He shows no evidence of paranoia, no evidence of active hallucinations or delusions. He was alert, oriented to time and place. Attention and concentration intact. Insight and judgment are fair. PHYSICAL EXAM: All vital signs are current. Temperature is 36.1, pulse 90, respirations 18, BP 113/76. MEDICATION REVIEW: 1. Seroquel 100 mg q.h.s. 2. Prazosin 2 mg b.i.d. 3. Seroquel 50 mg q.4 h. p.r.n. 4. Lamisil cream to the feet. 5. vitamin. 6. Lidocaine patch one q. h.s. 7. Remeron 30 mg q.h.s. 8. Flonase 1 spray b.i.d. ASSESSMENT: [place] I1. Posttraumatic stress disorder, chronic. 2. Major depressive disorder, recurrent type, nonpsychotic. 3. 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 4. Alcohol use disorder in a controlled environment. [place] IICluster B personality features. [place] IIIHistory of chronic pain. [place] IVStressors are noted for chronic substance use issues, difficulties with life transition. [place] VGlobal Assessment of Functioning current 40. PLANS: 1. Recommendations for intake as scheduled through the [facility] system on . 2. Recommendations for continuation of supportive care and medication management.
[2016-10-04] MEDS: Lidocaine Topical 5% Patch TOPICAL SCH (20:24)
[2016-10-05] MEDS: TerBINafine 1% 15 Gm Cream TOPICAL SCH ×2 (08:30→20:30)
[2016-10-05] MEDS: Fluticasone 0.05% 15 Spray/2 Gm 16 Gm Nasal Spray NASAL SCH ×2 (08:32→21:07)
[2016-10-05] MEDS: Multivit-Miner-Folic Acid-Iron Tablet PO SCH (08:32)
--- NOTE | 2016-10-05 12:25 | PROG NOTE ---
[address] [address] PROGRESS NOTE PATIENT: REINA KRUSE : 1955 MR#: [id number] ADMIT: 09/20/2016 JOB ID: [id number] DATE: CHIEF COMPLAINT: "I guess we're just waiting." This is per patient report. HISTORY OF PRESENT ILLNESS: As stated above, the patient openly identified acknowledgement that he is aware that we continue to await for feedback from the [place] system. It is my understanding that he is scheduled for intake for possible entry into [facility] treatment on at 1 o'clock. Discussion was held with the treatment team of the possibility of advancement into crisis respite and further details will be pursued. OBJECTIVE/MENTAL STATUS EXAMINATION: The patient is bright, cooperative, interactive. He maintains good eye contact throughout. His speech is of normal tone, frequency, and volume. His mood is neutral. Affect is congruent. Thought process shows no evidence of random flight of ideas, loose or disconnected thinking. Thought content, no evidence of current suicidal, homicidal ideation. No evidence of active hallucinations, delusions. He was alert, oriented to person, place, time, situation. Attention and concentration intact. Memory intact in the short term, local [employer] truck driver, recent. Insight and judgment are fair. PHYSICAL EXAMINATION: Vital signs are current. Temperature is 36.1, pulse 90, respirations 18, BP 113/76. MEDICATION REVIEW: Includes Seroquel 100 mg q.h.s., prazosin 2 mg b.i.d., Seroquel 50 mg q.4 h. p.r.n., lidocaine patch one q.h.s. p.r.n., Remeron 30 mg q.h.s., Flonase 1 spray b.i.d. ASSESSMENT: AXIS I: 1. Major depressive disorder, recurrent type, nonpsychotic. 2. Posttraumatic stress disorder. 3. Polysubstance use disorder including methamphetamines. 4. Alcohol use disorder, in remission, in a controlled environment. AXIS II: Cluster B personality traits. AXIS III: None. AXIS IV: Stressors are noted for chronic substance use, chronic mental health issues. AXIS V: Global Assessment of Functioning, current 40. PLAN: 1. Recommendation for chemical dependency assessment through the [facility] system on . 2. Recommendations for advancement into crisis respite, to follow.
[2016-10-05 12:50] VITALS: BP 112/76; PULSE 16; RESP 16
[2016-10-05] MEDS: Lidocaine Topical 5% Patch TOPICAL SCH (21:07)
[2016-10-06] MEDS: Multivit-Miner-Folic Acid-Iron Tablet PO SCH (08:07)
[2016-10-06] MEDS: Fluticasone 0.05% 15 Spray/2 Gm 16 Gm Nasal Spray NASAL SCH ×2 (08:07→20:30)
[2016-10-06] MEDS: TerBINafine 1% 15 Gm Cream TOPICAL SCH (08:07)
--- NOTE | 2016-10-06 12:14 | PROG NOTE ---
[address] [address] PROGRESS NOTE PATIENT: REINA KRUSE : 1955 MR#: [id number] ADMIT: 09/20/2016 JOB ID: [id number] DATE: 10/06/2016 CHIEF COMPLAINT: "I guess we're just waiting." " I don't know what I will do if they do not have a place for me, I could go to [facility]." HISTORY OF PRESENT ILLNESS: As stated above the patient identified that he is aware that we continue to wait on the [place] intake for on for possible referrals to [facility]. he did discuss with myself and AJ about possible short term care at [facility] if there is a wait list. He continues to express SI if he were DC to the street without housing. OBJECTIVE: On mental status exam, he was bright, cooperative, interactive. He denied any evidence of acute distress. His speech was of normal tone, frequency, and volume. His mood was neutral. Affect was congruent. His thought process showed no evidence of random flight of ideas, loose or disconnected thinking. Thought content: No evidence of current suicidal, homicidal ideation. No evidence of active hallucinations, delusions. He was alert, oriented to person, place, time, situation. Attention and concentration intact. Memory intact in the short term, snf, recent. Insight and judgment are fair. PHYSICAL EXAMINATION: Vital signs are current. Temperature is 36.5, pulse 16, respirations 16, BP 112/76. MEDICATION REVIEW: Includes Seroquel 100 mg q.h.s., prazosin 2 mg b.i.d., Seroquel 50 mg q.4 hours p.r.n. for anxiety, Lamisil cream, vitamin, lidocaine patch, Remeron 30 mg q.h.s., and Flonase spray one b.i.d. ASSESSMENT: [place] I: 1. Major depressive disorder, recurrent type, nonpsychotic. 2. Post-traumatic stress disorder, chronic. 3. Alcohol use disorder in a controlled environment. 4. 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 5. Malingering [place] II: Cluster B personality traits. [place] III: 1. Chronic pain. 2. History of sinus infection, resolved. [place] IV: Stressors are noted for chronic disturbance of mental health, substance use. [place] V: Global Assessment of Functioning of current 38. PLAN: 1. Recommendations to continue all medications. 2. Recommendations for followup interview process tomorrow with the [place] [facility] system. If there is no bed readily available discharge to crisis respite or alternative will be presented to the team. CHEY
[2016-10-06 13:27] VITALS: BP 106/73; PULSE 65
[2016-10-06] MEDS: Lidocaine Topical 5% Patch TOPICAL SCH (20:38)
[2016-10-07] MEDS: Fluticasone 0.05% 15 Spray/2 Gm 16 Gm Nasal Spray NASAL SCH (08:52)
[2016-10-07] MEDS: Multivit-Miner-Folic Acid-Iron Tablet PO SCH (08:52)
--- NOTE | 2016-10-07 09:35 | PCM.DIMED ---
Discharge Instructions Date of Service Oct 07, 2016 Dates of Hospitalization Sep 20, 2016 at 12:51 Discharge Diagnosis Discharge Diagnosis MDD Recurrent nonpsychotic PTSD chronic Polysubstance Use including opiate, meth Alcohol Use DO Malingering Diet Discharge Diet: No restrictions Activity Discharge Activity: No restrictions Oumar Rainey DO Oct 07, 2016 09:35
[2016-10-07] MEDS ORDERED: PREN1TAB25 PO (09:39)
[2016-10-07] MEDS ORDERED: QUET100T69 PO (09:39)
[2016-10-07] MEDS ORDERED: QUET50TA55 PO (09:39)
[2016-10-07] MEDS ORDERED: MIRT45TA5 PO (09:39)
--- NOTE | 2016-10-07 11:45 | PROG NOTE ---
[address] [address] PROGRESS NOTE PATIENT: REINA KRUSE : 1955 MR#: [id number] ADMIT: 09/20/2016 JOB ID: [id number] DATE: 10/07/2016 CHIEF COMPLAINT: "I guess we will find out today." This per patient report. HISTORY OF PRESENT ILLNESS: As stated above, the patient openly identified that he is aware that he has an intake coordinated today with the [place] through [facility]. He reports that he is aware that discussion has been held about [facility], and he continues to support eventual transition. OBJECTIVE: On mental status examination, he was cooperative, polite. He maintained good eye contact. He was brief on his interactions with myself. His speech is of normal tone, frequency and volume. His mood is neutral. Affect is congruent. His thought process showed no evidence of racing thoughts, flight of ideas, loose or disconnected thinking. Thought content: He denied any evidence of current suicidal or homicidal ideation. No evidence of active hallucinations, delusions. He was alert, oriented to time and place. His attention and concentration intact. Insight and judgment are fair. PHYSICAL EXAM: Vital signs of current. Temperature is 36.7, pulse 65, respirations 16, BP 106/73. MEDICATION REVIEW: Includes: 1. Remeron 45 mg q.h.s. 2. Seroquel 100 mg q.h.s. p.r.n., 50 mg q.4 hours p.r.n. 3. vitamin. 4. Lidocaine patch q.h.s. p.r.n. ASSESSMENT: AXIS I 1. Major depressive disorder, recurrent type, nonpsychotic. 2. Posttraumatic stress disorder, chronic. 3. Polysubstance use disorder including methamphetamine and opiates. 4. Alcohol use disorder. 5. Malingering. AXIS II Cluster B personality traits. AXIS III Chronic pain. AXIS IV Stressors are noted for life transition, chronic substance abuse. AXIS V Global assessment of functioning of current 40. PLANS: 1. Recommendations for intake with [facility] program today. 2. Recommendations for plan of discharge possibly to a Crisis [facility] tomorrow. 3. Continuation of medications including Remeron 45 mg q.h.s., Seroquel 100 mg q.h.s., Seroquel 50 mg q.4 hours p.r.n., vitamin. Prescriptions were written for discharge today with plan and intent to discharge tomorrow.
[2016-10-07 13:59] VITALS: BP 108/68; PULSE 82; RESP 16
[2016-10-07] MEDS: Lidocaine Topical 5% Patch TOPICAL SCH (20:58)
[2016-10-08] MEDS: Multivit-Miner-Folic Acid-Iron Tablet PO SCH (08:06)
--- NOTE | 2016-10-08 14:28 | PCM.PNPSY ---
Subjective Date of Service Oct 08, 2016 Subjective I spent 30 minutes both reviewing treatment plan with our clinical team, interviewing the patient and providing supportive/educational psychotherapy. I spent more than 50% of the time counseling the patient. I reviewed the treatment plan with the him and discussed options available including the potential risks, benefits and side effects. Jaime reports a significant worsening in mood stability. He got angry during the session when we talked about housing prior to inpatient drug and alcohol rehabilitation. He made loud statements about how he was going to harm himself if he had to be homeless. He was vague about suicidal plan. Staff reports that he has been social but is participating minimally in one-to-one unit and group activities. He reports significant depression symptoms review (depressed mood, suicidal ideation, anhedonia, poor motivation, poor energy). He denies medication side effects. He was able to identify his medications and what they were used to treat. Current Medications Current Medications Mirtazapine 45 mg HS PO Last administered on 10/07/16t 20:58; Admin Dose 45 MG; Start 10/06/16 at 21:00 Mental Status Exam Appearance: Neat/well groomed Attitude: Guarded Behavior: No unusual behavior Affect: Flat Mood: Irritable, Dysthymic (she still is a marked she 14 day hold when I when I run this drop the hold and discharge were not taken her psychiatric the due to sign of new below the called and she saidAnyway so hard just in case is the person with 0 so more year medically cleared Medicare) Thought Process/Associations: Goal Directed Speech Production: Normal Speech Rate: Normal Speech Articulation: Normal Thought Content: Negativistic Danger to Self/Suicidal Ideati: Active, Plan, Intent Danger to Others: None Consciousness: Alert Orientation: Person, Place, Date, Situation Estimate Intellectual Function: Average Basis for IQ estimate: Awareness current events, Word use/vocabulary Attention/Concentration & Cogn: Grossly Intact (sums) Insight: Limited ( not when I have a good summer) Judgement: Limited Mental Health Plan [place] AXIS I 1. Major depressive disorder, recurrent type, nonpsychotic. 2. Posttraumatic stress disorder, chronic. 3. Polysubstance use disorder including methamphetamine and opiates. 4. Alcohol use disorder. 5. Malingering. AXIS II Cluster B personality traits. AXIS III Chronic pain. AXIS IV Stressors are noted for life transition, chronic substance abuse. AXIS V Global assessment of functioning of current 40. Medications Treatments Patient is being provided with a high degree of safety through our unit structure and active adult engagement provided by our mental health professionals, mental health technicians, psychiatric nurses and myself. We are focusing on developing improved coping skills and identifying stressors that may have led to current episode. We will attempt to: * Integrate into therapeutic groups, milieu and individual therapy. * Maintain in a closely monitored and structured unit * Provide low-stimulation environment * Assess degree of lability of affect and impulse control * Complete safety plan * Decrease frequency of relapse and need for re-hospitalization * Denies thoughts of harm to self * Establish a consistent sleep pattern * Medication effective in stabilization of mood and/or thought process * Reduce the risk of imminent harm to self and/or others by providing a safe environment * Tolerates medication without side effects Patient will be on the following psychiatric medications: Remeron 45 mg q.h.s. [id number] mg q.h.s., Seroquel 50 mg q.4 hours p.r.n., vitamin. Education: Educate patient about recreational drug use as an etiology Patient's legal status Voluntary Anticipated number of hospital days to achieve above goals: Disposition PLANS: 1. Recommendations for intake with [facility] 2. Recommendations for plan of discharge possibly to a Crisis Respite As soon as safety plan can be agreed upon Janak Martinez MD Oct 08, 2016 14:28
[2016-10-08 14:30] VITALS: BP 103/70; PULSE 76; RESP 16
[2016-10-08] MEDS: Lidocaine Topical 5% Patch TOPICAL SCH (20:11)
[2016-10-09] MEDS: Multivit-Miner-Folic Acid-Iron Tablet PO SCH (08:23)
[2016-10-09 08:30] VITALS: BP 119/77; PULSE 72; RESP 16
--- NOTE | 2016-10-09 20:59 | PCM.PNPSY ---
Subjective Date of Service Oct 09, 2016 Subjective The patient reports today that he has "the same mood, same stress level, and depression." He reports that he feels that he can function in the hospital but is concerned that should he leave without having substance treatment or secure ways to stay he would not attempt suicide. He reports that [facility] calling [facility], [facility], and [facility] and attempt to locate housing but is so far not found any. He reports that the quetiapine appears to be helping his symptoms somewhat and that his anger has abated somewhat with the increase in mirtazapine. He denies current side effects. Sleep: 5.5 hours. Appetite: "Okay" Suicidal ideation: "When I think about going outside" Homicidal ideation: Denies Auditory hallucinations: Reports insight of his head for years and occasionally occurs outside. Visual hallucinations: Endorses seeing figures "behind me and to the side of me. " Other Psychotic Symptoms: N/A Anxiety: 07/26 Depression: 08/25 Mental Status Exam Appearance: Neat/well groomed Attitude: Guarded Behavior: No unusual behavior Affect: Restricted Mood: Dysthymic, Anxious Thought Process/Associations: Goal Directed Speech Production: Normal Speech Rate: Normal Speech Articulation: Normal Thought Content: Negativistic Danger to Self/Suicidal Ideati: Active, Plan, Intent (if discharged without housing/treatment) Danger to Others: None Hallucinations: Auditory (Endorses), Visual (Endorses) Consciousness: Alert Orientation: Person, Place, Date, Situation Memory: Grossly Intact Estimate Intellectual Function: Average Basis for IQ estimate: Awareness current events, Word use/vocabulary Attention/Concentration & Cogn: Grossly Intact Insight: Limited Judgement: Limited Mental Health Plan The patient is a 61-year-old male from [place], [facility], who was admitted on a voluntary basis through the emergency department with report of suicidal ideation with plan and intent to step in front of traffic or to use his guns that are evidently put away. The patient reportedly presented under the influence of methamphetamine, reporting daily use over the past 1-2 years, with concomitant usage of THC, and alcohol, drinking 4-5 half pints per day. The patient reports some improvement in symptoms but is still experiencing some auditory hallucinations and depression and irritability as noted in earlier notes. The patient's suicidal thoughts appear to be predicated on obtaining appropriate treatment and housing. The patient is however making attempts at finding outside housing. [place] AXIS I 1. Major depressive disorder, recurrent type, nonpsychotic. 2. Posttraumatic stress disorder 3. Polysubstance use disorder including methamphetamine, opiates, and alcohol.. 4. Malingering by history AXIS II Cluster B personality traits. AXIS III Chronic pain. AXIS IV Stressors are noted for homelessness, substance use AXIS V Global assessment of functioning of current 35. Medications Mirtazapine 45 mg nightly Quetiapine 100 mg nightly Quetiapine 50 mg as needed for anxiety or agitation Treatments 1. The patient is admitted to the inpatient unit and will be provided a safe and secure environment. 2. The patient is denying current active suicidality and is not in need of a one-to-one at this time. He is agreeing to notify us should he have any acute suicidal or homicidal thoughts. 3. The patient is encouraged to participate with group and milieu activities. 4. The patient will be seen by the treatment team on a daily basis to assess symptoms, side effects and response to treatment. 5. The patient will be continued on mirtazapine 45 mg nightly for PTSD and depression. 6. Quetiapine will be increased to 200 mg at bedtime 7. Previous recommendation for intake with [place] [facility] 8. The patient will continue to work on discharge planning with [facility] , [facility], [facility] as noted above 9. Anticipated length of stay is 3-5 days. Inder Reynolds MD Oct 09, 2016 20:59 Patient will be on the following psychiatric medications: Remeron 45 mg q.h.s. [id number] mg q.h.s., Seroquel 50 mg q.4 hours p.r.n., vitamin. Education: Educate patient about recreational drug use as an etiology Patient's legal status Voluntary Anticipated number of hospital days to achieve above goals: Disposition PLANS: 1. Recommendations for intake with [place] [facility] 2. Recommendations for plan of discharge possibly to a [facility] As soon as safety plan can be agreed upon Inder Reynolds MD Oct 09, 2016 20:59
[2016-10-09] MEDS: Lidocaine Topical 5% Patch TOPICAL SCH (21:05)
[2016-10-10] MEDS: Multivit-Miner-Folic Acid-Iron Tablet PO SCH (08:58)
[2016-10-10 09:00] VITALS: BP 111/77; PULSE 81; RESP 18
--- NOTE | 2016-10-10 16:56 | PCM.PNPSY ---
Subjective Date of Service Oct 10, 2016 Subjective The patient reports feeling "more down today and discouraged." The patient was again rejected by [facility] and stated to call back on Tuesday as they had two people ahead of him. The patient reports that he does not believe that he would act on suicidal thoughts either in housing or in rehabilitation as the last time he was in rehabilitation he had a similar issue is chronic suicidal ideation and was able to remain safe. He feels discouraged that his daughter has not answered his calls and only came to visit him once. He reports treatment at the [facility] in 2015 help to reduce his symptoms and he believes they were the same medications that he is currently taking. He denies side effects from increase in quetiapine and reports improved sleep. Sleep: 7.5 hours Appetite: Reduced today Suicidal and homicidal ideation: Chronic suicidal thoughts no plan to act on them while in the hospital. Denies homicidal thoughts. Auditory hallucinations: Denies active hallucinations reports negative self talk. Visual hallucinations: Reports "people behind me" Other Psychotic Symptoms: Some paranoid ideation Anxiety: 10/25 Depression: -11/25 Current Medications Current Medications Quetiapine Fumarate 200 mg HS PO Last administered on 10/09/16t 21:06; Admin Dose 200 MG; Start 10/09/16 at 21:00 Mental Status Exam Vital Signs Vital Signs Date Time Temp Pulse Resp B/P Pulse Ox O2 Delivery O2 Flow Rate FiO2 10/10/16 09:00 36.3 81 18 111/77 Appearance: Neat/well groomed Attitude: Guarded Behavior: No unusual behavior Affect: Restricted Mood: Dysthymic, Anxious Thought Process/Associations: Goal Directed Speech Production: Normal Speech Rate: Normal Speech Articulation: Normal Thought Content: Negativistic Danger to Self/Suicidal Ideati: Active (denies in the hospital), Plan, Intent ( denies in hospital, unsure on discharge) Danger to Others: None Hallucinations: Auditory (Denies), Visual (Endorses) Consciousness: Alert Orientation: Person, Place, Date, Situation Memory: Grossly Intact Estimate Intellectual Function: Average Basis for IQ estimate: Awareness current events, Word use/vocabulary Attention/Concentration & Cogn: Grossly Intact Insight: Limited Judgement: Limited Mental Health Plan The patient is a 61-year-old male from [place], [facility], who was admitted on a voluntary basis through the emergency department with report of suicidal ideation with plan and intent to step in front of traffic or to use his guns that are evidently put away. The patient reportedly presented under the influence of methamphetamine, reporting daily use over the past 1-2 years, with concomitant usage of THC, and alcohol, drinking 4-5 half pints per day. The patient reports some improvement in symptoms but is still experiencing some negative self talk, paranoia, peripheral visual hallucinations, depression and irritability as noted in earlier notes. The patient's suicidal thoughts appear to be predicated on obtaining appropriate treatment and housing. The patient is however making attempts at finding outside housing. [place] AXIS I 1. Major depressive disorder, recurrent type, nonpsychotic. 2. Posttraumatic stress disorder 3. Polysubstance use disorder including methamphetamine, opiates, and alcohol.. 4. 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 AXIS III Chronic pain. AXIS IV Stressors are noted for homelessness, substance use AXIS V Global assessment of functioning of current 35. Medications Mirtazapine 45 mg nightly Quetiapine 200 mg nightly Quetiapine 50 mg as needed for anxiety or agitation Treatments 1. The patient is admitted to the inpatient unit and will be provided a safe and secure environment. 2. The patient is denying current active suicidality and is not in need of a one-to-one at this time. He is agreeing to notify us should he have any acute suicidal or homicidal thoughts. 3. The patient is encouraged to participate with group and milieu activities. 4. The patient will be seen by the treatment team on a daily basis to assess symptoms, side effects and response to treatment. 5. The patient will be continued on mirtazapine 45 mg nightly for PTSD and depression. 6. Quetiapine will be continued at 200 mg at bedtime, if depression continues worse and will reduce to 100 mg. 7. Previous recommendation for intake with [place] [facility] 8. The patient will continue to work on discharge planning with [facility] , [facility], [facility] as noted above 9. Anticipated length of stay is 3-5 days. Inder Reynolds MD Oct 10, 2016 16:56
[2016-10-10] MEDS: Lidocaine Topical 5% Patch TOPICAL SCH (21:03)
[2016-10-11 08:20] VITALS: BP 109/68; PULSE 82; RESP 20
[2016-10-11] MEDS: Multivit-Miner-Folic Acid-Iron Tablet PO SCH (09:09)
[2016-10-11] MEDS: Lidocaine Topical 5% Patch TOPICAL SCH (20:58)
--- NOTE | 2016-10-11 21:52 | PCM.PNPSY ---
Subjective Date of Service Oct 11, 2016 Subjective The patient reports that mirtazapine was making "my arms and legs move involuntarily. I'm not going to take it anymore." Patient requested alternate antidepressant. Patient reports that he has not tried fluoxetine, escitalopram or bupropion. Patient reports that He can be accepted to [facility] if his hep C is considered cured or not an issue. Patient unsure exactly what they wanted but reported that if cleared, he would go. He denies side effects from increase in quetiapine and reports improved sleep. Sleep: 7.5 hours Appetite: "not like it was" Suicidal and homicidal ideation: Chronic suicidal thoughts no plan to act on them while in the hospital. Denies homicidal thoughts. Auditory hallucinations: Denies active hallucinations reports negative self talk. Visual hallucinations: Reports "people behind me" Other Psychotic Symptoms: Some paranoid ideation Anxiety: "just took an anxiety pill" Depression: 10/25 Mental Status Exam Appearance: Neat/well groomed Attitude: Guarded Behavior: No unusual behavior Affect: Restricted Mood: Dysthymic, Anxious Thought Process/Associations: Goal Directed Speech Production: Normal Speech Rate: Normal Speech Articulation: Normal Thought Content: Negativistic Danger to Self/Suicidal Ideati: Active (denies in the hospital), Plan, Intent ( denies in hospital, unsure on discharge) Danger to Others: None Hallucinations: Auditory (Denies), Visual (Endorses) Consciousness: Alert Orientation: Person, Place, Date, Situation Memory: Grossly Intact Estimate Intellectual Function: Average Basis for IQ estimate: Awareness current events, Word use/vocabulary Attention/Concentration & Cogn: Grossly Intact Insight: Limited Judgement: Limited Mental Health Plan The patient is a 61-year-old male from [place], [facility], who was admitted on a voluntary basis through the emergency department with report of suicidal ideation with plan and intent to step in front of traffic or to use his guns that are evidently put away. The patient reportedly presented under the influence of methamphetamine, reporting daily use over the past 1-2 years, with concomitant usage of THC, and alcohol, drinking 4-5 half pints per day. The patient reports some improvement in symptoms but is still experiencing some negative self talk, paranoia, peripheral visual hallucinations, depression and irritability as noted in earlier notes. The patient's suicidal thoughts appear to be predicated on obtaining appropriate treatment and housing. The patient is however making attempts at finding outside housing. Today, he is reporting that mirtazapine is causing intolerable side effects though has never mentioned it before. He is unwilling to cross-taper but is willing to try escitalopram. It is unclear whether this is related to his concern about discharge. He may be able to be placed in [place] per his report. [place] AXIS I 1. Major depressive disorder, recurrent type, nonpsychotic. 2. Posttraumatic stress disorder 3. Polysubstance use disorder including methamphetamine, opiates, and alcohol.. 4. 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 AXIS III Chronic pain. AXIS IV Stressors are noted for homelessness, substance use AXIS V Global assessment of functioning of current 35. Medications Escitalopram 5mg daily then increase to 10mg daily Quetiapine 200 mg nightly Quetiapine 50 mg as needed for anxiety or agitation Treatments 1. The patient is admitted to the inpatient unit and will be provided a safe and secure environment. 2. The patient is denying current active suicidality and is not in need of a one-to-one at this time. He is agreeing to notify us should he have any acute suicidal or homicidal thoughts. 3. The patient is encouraged to participate with group and milieu activities. 4. The patient will be seen by the treatment team on a daily basis to assess symptoms, side effects and response to treatment. 5. Discontinue mirtazapine, patient declining cross-taper, start escitalopram 5mg daily and increase to 10mg for PTSD and depression. 6. Quetiapine will be continued at 200 mg at bedtime, if depression continues worse and will reduce to 100 mg. 7. Previous recommendation for intake with [place] [facility],reportedly needs clarification regarding hepatitis C. 8. The patient will continue to work on discharge planning with [facility], [facility] as noted above 9. Anticipated length of stay is 3-5 days. Inder Reynolds MD Oct 11, 2016 21:52
[2016-10-11] MEDS: Fluticasone 0.05% 15 Spray/2 Gm 16 Gm Nasal Spray NASAL SCH (21:59)
[2016-10-12] MEDS: Multivit-Miner-Folic Acid-Iron Tablet PO SCH (08:39)
[2016-10-12] MEDS: Fluticasone 0.05% 15 Spray/2 Gm 16 Gm Nasal Spray NASAL SCH ×2 (08:40→21:03)
--- NOTE | 2016-10-12 20:41 | PCM.PNPSY ---
Subjective Date of Service Oct 12, 2016 Subjective The patient reports "I haven't taken a shower in 4 days because I'm filled with negativity." Patient reports that he will be receiving approx $4k/month in [place] benefits October 16. He states that his has the house and he has to pay the mortgage and that his daughter has not come to see him more than once. This he reports as the source of his negativity. Despite having two sons in [place] that want him to visit he sees his situation as negative. Patient reported that he is concerned he will be homeless soon so is not showering; encouraged patient to do so. Denies side effects. Sleep: 7+hours, only mild restlessness Appetite: reports didn't eat lunch but ate "a little breakfast." Suicidal and homicidal ideation: denies current, reports chronic episodic Auditory hallucinations: denies Visual hallucinations: denies Other Psychotic Symptoms: N/A Depression: or 10/25 Current Medications Current Medications Escitalopram Oxalate 5 mg DAILY PO Last administered on 10/12/16 08:39; Admin Dose 5 MG; Start 10/12/16 at 08:30 Fluticasone Propionate 1 spray BID NASAL Last administered on 10/12/16 08:40; Admin Dose 1 SPRAY; Start 10/11/16 at 21:59 Mental Status Exam Appearance: Neat/well groomed Attitude: Guarded Behavior: No unusual behavior Affect: Restricted Mood: Dysthymic, Anxious Thought Process/Associations: Goal Directed Speech Production: Normal Speech Rate: Normal Speech Articulation: Normal Thought Content: Negativistic Danger to Self/Suicidal Ideati: None, Passive (chronic, though not at present) Danger to Others: None Hallucinations: Auditory (Denies), Visual (Denies) Consciousness: Alert Orientation: Person, Place, Date, Situation Memory: Grossly Intact Estimate Intellectual Function: Average Basis for IQ estimate: Awareness current events, Word use/vocabulary Attention/Concentration & Cogn: Grossly Intact Insight: Limited Judgement: Limited Mental Health Plan The patient is a 61-year-old male from [facility], who was admitted on a voluntary basis through the emergency department with report of suicidal ideation with plan and intent to step in front of traffic or to use his guns that are evidently put away. The patient reportedly presented under the influence of methamphetamine, reporting daily use over the past 1-2 years, with concomitant usage of THC, and alcohol, drinking 4-5 half pints per day. The patient reports some improvement in symptoms but is still experiencing some negative self talk, paranoia, peripheral visual hallucinations, depression and irritability as noted in earlier notes. The patient's suicidal thoughts appear to be predicated on obtaining appropriate treatment and housing. The patient is however making attempts at finding outside housing. Today, he is reporting that mirtazapine is causing intolerable side effects though has never mentioned it before. He is unwilling to cross-taper but is willing to try escitalopram. It is unclear whether this is related to his concern about discharge. He may be able to be placed in [place] per his report. Patient reports no side effects from escitalopram. Patient negativistic, but denies current SI. [facility]. [place] AXIS I 1. Major depressive disorder, recurrent type, nonpsychotic. 2. Posttraumatic stress disorder 3. Polysubstance use disorder including methamphetamine, opiates, and alcohol.. 4. 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 AXIS III Chronic pain. AXIS IV Stressors are noted for homelessness, substance use AXIS V Global assessment of functioning of current 35. Medications Escitalopram 5mg daily then increase to 10mg daily Quetiapine 200 mg nightly Quetiapine 50 mg as needed for anxiety or agitation Treatments 1. The patient is admitted to the inpatient unit and will be provided a safe and secure environment. 2. The patient is denying current active suicidality and is not in need of a one-to-one at this time. He is agreeing to notify us should he have any acute suicidal or homicidal thoughts. 3. The patient is encouraged to participate with group and milieu activities. 4. The patient will be seen by the treatment team on a daily basis to assess symptoms, side effects and response to treatment. 5. Escitalopram 10mg for PTSD and depression. 6. Quetiapine will be continued at 200 mg at bedtime, if depression continues worse and will reduce to 100 mg. 7. Previous recommendation for intake with [place] [facility],reportedly needs clarification regarding hepatitis C, awaiting call back. 8. The [facility], [facility] as noted above 9. Anticipated length of stay is 3-5 days. Inder Reynolds MD Oct 12, 2016 20:40
[2016-10-12] MEDS: Lidocaine Topical 5% Patch TOPICAL SCH (21:03)
[2016-10-13] MEDS: Multivit-Miner-Folic Acid-Iron Tablet PO SCH (08:31)
[2016-10-13] MEDS: Fluticasone 0.05% 15 Spray/2 Gm 16 Gm Nasal Spray NASAL SCH ×2 (08:31→20:45)
--- NOTE | 2016-10-13 17:01 | PCM.PNPSY ---
Subjective Date of Service Oct 13, 2016 Subjective Upon arrival patient is lying in bed resting quietly. Discussion surrounded the logistics of discharge. Patient questioned status of discharge to [facility] and would like to know if he will be getting his HCV "checked". He states that he continues to have "leg jerks" that keep him awake and that the discontinuation of Mirtazapine has worsened his depression and the increase of Escitalopram Oxalate from 5 mg DAILY PO to 10 mg DAILY PO is not sufficient. He states that he feels he is "closer to crying" but denies SI. Would like to restart the Mirtazapine and slowly taper from Mirtazapine to Escitalopram as previously discussed and planned. Sleep: 5.75hrs Appetite: "some" Suicidal and homicidal ideation: Denies Auditory hallucinations: Denies Visual hallucinations: Denies Other Psychotic Symptoms: Denies Anxiety: 10/25 Depression: 10/25 Current Medications Current Medications Escitalopram Oxalate 5 mg DAILY PO Last administered on 10/12/16 08:39; Admin Dose 5 MG; Start 10/12/16 at 08:30; Stop 10/12/16 at 20:45; Status DC Escitalopram Oxalate 10 mg DAILY PO Last administered on 10/13/16 08:31; Admin Dose 10 MG; Start 10/13/16 at 08:30 Fluticasone Propionate 1 spray BID NASAL Last administered on 10/13/16 08:31; Admin Dose 1 SPRAY; Start 10/11/16 at 21:59 Mental Status Exam Appearance: Unkept (Pt in sleep attire in bed, late morning) Attitude: Guarded Behavior: No unusual behavior Affect: Restricted Mood: Dysthymic, Depressed, Anxious Thought Process/Associations: Goal Directed Speech Production: Normal Speech Rate: Normal Speech Articulation: Normal Thought Content: Negativistic Danger to Self/Suicidal Ideati: None, Passive (chronic, though denies at present) Danger to Others: None Hallucinations: Auditory (Denies), Visual (Denies) Consciousness: Alert Orientation: Person, Place, Date, Situation Memory: Grossly Intact Estimate Intellectual Function: Average Basis for IQ estimate: Awareness current events, Word use/vocabulary Attention/Concentration & Cogn: Grossly Intact Insight: Limited Judgement: Limited Mental Health Plan The patient is a 61-year-old male from [place], who was admitted on a voluntary basis through the emergency department with report of suicidal ideation with plan and intent to step in front of traffic or to use his guns that are evidently put away. The patient reportedly presented under the influence of methamphetamine, reporting daily use over the past 1-2 years, with concomitant usage of THC, and alcohol, drinking 4-5 half pints per day. The patient reports some improvement in symptoms but is still experiencing depression and anxiety but now denying visual and auditory hallucinations. The patient's suicidal thoughts appear to be predicated on obtaining appropriate treatment and housing. The patient is however making attempts at finding outside housing. Today, he is reporting that he continued to experience the "leg jerking" he had attributed to mirtazapine although it was discontinued yesterday. He is now willing to cross-taper with escitalopram. He may be able to be placed in [place] per his report. Still have not received call back from [place] intake. Patient reports no side effects from escitalopram. Patient negativistic, but denies current SI. Patient has been denied crisis respite [place] AXIS I 1. Major depressive disorder, recurrent type, nonpsychotic. 2. Posttraumatic stress disorder 3. Polysubstance use disorder including methamphetamine, opiates, and alcohol.. 4. 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 AXIS III Chronic pain. AXIS IV Stressors are noted for homelessness, substance use AXIS V Global assessment of functioning of current 35. Medications 1. Continue Escitalopram 5mg daily then increase to 10mg daily 2. Continue Quetiapine 200 mg nightly 3. Quetiapine 50 mg as needed for anxiety or agitation 4. Restart Mirtazapine at 30mg po nightly Treatments 1. The patient is admitted to the inpatient unit and will be provided a safe and secure environment. 2. The patient is denying current active suicidality and is not in need of a one-to-one at this time. He is agreeing to notify us should he have any acute suicidal or homicidal thoughts. 3. The patient is encouraged to participate with group and milieu activities. 4. The patient will be seen by the treatment team on a daily basis to assess symptoms, side effects and response to treatment. 5. Escitalopram 10mg for PTSD and depression. 6. Quetiapine will be continued at 200 mg at bedtime, if depression continues worse and will reduce to 100 mg. 7. Restart Mirtazapine at 30mg hs 7. Previous recommendation for intake with [place] [facility] treatment program,reportedly needs clarification regarding hepatitis C, awaiting call back. If this does not happen, will order Hep C titer. 8. The patient will continue to work on discharge planning with [facility] as noted above 9. Anticipated length of stay is 3-5 days. Attending Statement The patient was seen and examined together with Dr. Larios on 10/13/16 and I have added additional information to the note above. Brenda Suarez DO Oct 13, 2016 17:01 Inder Reynolds MD Oct 13, 2016 17:28
[2016-10-13 18:45] LABS: BASOPHILS % (AUTO) 0.2 % (0-3); EOSINOPHILS % (AUTO) 3.4 % (0-5); MONOCYTES % (AUTO) 11.9 % (4-12); Mean Corpuscular Hemoglobin 25.4 pg (27.0-35.0); Mean Corpuscular Volume 75.3 fL (81-100); NEUTROPHILS % (AUTO) 29.6 % (40-74); Platelet Count 291 bil/L (150-400)
[2016-10-13] MEDS: Lidocaine Topical 5% Patch TOPICAL SCH (20:45)
[2016-10-14] MEDS: Multivit-Miner-Folic Acid-Iron Tablet PO SCH (09:04)
[2016-10-14] MEDS: Fluticasone 0.05% 15 Spray/2 Gm 16 Gm Nasal Spray NASAL SCH ×2 (09:04→21:38)
[2016-10-14 15:00] VITALS: BP 110/70; PULSE 72; RESP 18
[2016-10-14] MEDS: Lidocaine Topical 5% Patch TOPICAL SCH (21:38)
--- NOTE | 2016-10-14 22:45 | PCM.PNPSY ---
Subjective Date of Service Oct 14, 2016 Subjective Patient reports that he is "doing okay." He notes that he took a shower today, which is an improvement for him. He states that his "mind feels more at ease." He did discuss his chronic suicidal thoughts and we discussed the difference between active and passive thoughts. The patient believes that he will discharge to a hotel on Tuesday. The patient reports a good response to restart of lower dose mirtazapine. Sleep: 7 hrs Appetite: "ate some breakfast and lunch" Suicidal and homicidal ideation: Denies Auditory hallucinations: Denies Visual hallucinations: Denies Other Psychotic Symptoms: Denies Anxiety: 07/26 Depression: 07/26 Current Medications Current Medications Escitalopram Oxalate 10 mg DAILY PO Last administered on 10/14/16 09:04; Admin Dose 10 MG; Start 10/13/16 at 08:30 Mirtazapine 30 mg HS PO Last administered on 10/14/16 21:38; Admin Dose 30 MG; Start 10/13/16 at 21:00 Mental Status Exam Vital Signs Vital Signs Date Time Temp Pulse Resp B/P Pulse Ox O2 Delivery O2 Flow Rate FiO2 10/14/16 15:00 36.2 72 18 110/70 Appearance: Neat/well groomed Attitude: Cooperative, Guarded Behavior: No unusual behavior Affect: Restricted Mood: Dysthymic, Anxious Thought Process/Associations: Goal Directed Speech Production: Normal Speech Rate: Normal Speech Articulation: Normal Thought Content: Negativistic Danger to Self/Suicidal Ideati: None, Passive (chronic, though denies at present) Danger to Others: None Hallucinations: Auditory (Denies), Visual (Denies) Consciousness: Alert Orientation: Person, Place, Date, Situation Memory: Grossly Intact Estimate Intellectual Function: Average Basis for IQ estimate: Awareness current events, Word use/vocabulary Attention/Concentration & Cogn: Grossly Intact Insight: Limited Judgement: Limited Result Diagram: 10/13/16182110/13/161821 Mental Health Plan The patient is a 61-year-old male from [facility], who was admitted on a voluntary basis through the emergency department with report of suicidal ideation with plan and intent to step in front of traffic or to use his guns that are evidently put away. The patient reportedly presented under the influence of methamphetamine, reporting daily use over the past 1-2 years, with concomitant usage of THC, and alcohol, drinking 4-5 half pints per day. The patient reports some improvement in symptoms but is still experiencing depression and anxiety but now denying visual and auditory hallucinations. The patient's suicidal thoughts appear to be predicated on obtaining appropriate treatment and housing. The patient is however making attempts at finding outside housing. Today, he is reporting that he continued to experience the "leg jerking" he had attributed to mirtazapine although it was discontinued yesterday. He is now willing to cross-taper with escitalopram. He may be able to be placed in [place] per his report. Still have not received call back from [place] intake. Patient reports mood improved. Patient reports no side effects from escitalopram. Patient negativistic, but denies current SI. Patient has been denied crisis respite, but may be able to go to [place] for treatment. [place] AXIS I 1. Major depressive disorder, recurrent type, nonpsychotic. 2. Posttraumatic stress disorder 3. Polysubstance use disorder including methamphetamine, opiates, and alcohol.. 4. 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 AXIS III Chronic pain. AXIS IV Stressors are noted for homelessness, substance use AXIS V Global assessment of functioning of current 35. Medications 1. Escitalopram 10mg daily 2. Continue Quetiapine 200 mg nightly 3. Quetiapine 50 mg as needed for anxiety or agitation 4. Mirtazapine 30mg po nightly Treatments 1. The patient is admitted to the inpatient unit and will be provided a safe and secure environment. 2. The patient is denying current active suicidality and is not in need of a one-to-one at this time. He is agreeing to notify us should he have any acute suicidal or homicidal thoughts. 3. The patient is encouraged to participate with group and milieu activities. 4. The patient will be seen by the treatment team on a daily basis to assess symptoms, side effects and response to treatment. 5. Escitalopram 10mg for PTSD and depression. 6. Quetiapine will be continued at 200 mg at bedtime 7. Restart Mirtazapine at 30mg hs 8. Previous recommendation for intake with [place] [facility] dependency treatment program. Program indicates concern that patient did not complete treatment and would like copy of note and most recent labs. LFTs WNL Hep C quant is still pending. 9. The patient will continue to work on discharge planning with [facility] as noted above 10. Anticipated length of stay is 3-5 days. Inder Reynolds MD Oct 14, 2016 22:45
--- NOTE | 2016-10-15 00:05 | PCM.PNPSY ---
Subjective Date of Service Oct 14, 2016 Subjective Patient reports that he is "doing okay." He notes that he took a shower today, which is an improvement for him. He states that his "mind feels more at ease." He did discuss his chronic suicidal thoughts and we discussed the difference between active and passive thoughts. The patient believes that he will discharge to a hotel on Tuesday. The patient reports a good response to restart of lower dose mirtazapine. Sleep: 7 hrs Appetite: "ate some breakfast and lunch" Suicidal and homicidal ideation: Denies Auditory hallucinations: Denies Visual hallucinations: Denies Other Psychotic Symptoms: Denies Anxiety: 07/26 Depression: 07/26 Current Medications Current Medications Escitalopram Oxalate 10 mg DAILY PO Last administered on 10/14/16 09:04; Admin Dose 10 MG; Start 10/13/16 at 08:30 Mirtazapine 30 mg HS PO Last administered on 10/14/16 21:38; Admin Dose 30 MG; Start 10/13/16 at 21:00 Mental Status Exam Appearance: Neat/well groomed Attitude: Cooperative, Guarded Behavior: No unusual behavior Affect: Restricted Mood: Dysthymic, Anxious Thought Process/Associations: Goal Directed Speech Production: Normal Speech Rate: Normal Speech Articulation: Normal Thought Content: Negativistic Danger to Self/Suicidal Ideati: None, Passive (chronic, though denies at present) Danger to Others: None Hallucinations: Auditory (Denies), Visual (Denies) Consciousness: Alert Orientation: Person, Place, Date, Situation Memory: Grossly Intact Estimate Intellectual Function: Average Basis for IQ estimate: Awareness current events, Word use/vocabulary Attention/Concentration & Cogn: Grossly Intact Insight: Limited Judgement: Limited Result Diagram: 10/13/16182110/13/161821 Mental Health Plan The patient is a 61-year-old male from [facility], who was admitted on a voluntary basis through the emergency department with report of suicidal ideation with plan and intent to step in front of traffic or to use his guns that are evidently put away. The patient reportedly presented under the influence of methamphetamine, reporting daily use over the past 1-2 years, with concomitant usage of THC, and alcohol, drinking 4-5 half pints per day. The patient reports some improvement in symptoms but is still experiencing depression and anxiety but now denying visual and auditory hallucinations. The patient's suicidal thoughts appear to be predicated on obtaining appropriate treatment and housing. The patient is however making attempts at finding outside housing. Today, he is reporting that he continued to experience the "leg jerking" he had attributed to mirtazapine although it was discontinued yesterday. He is now willing to cross-taper with escitalopram. He may be able to be placed in [place] per his report. Still have not received call back from [place] intake. Patient reports mood improved. Patient reports no side effects from escitalopram. Patient negativistic, but denies current SI. Patient has been denied crisis respite, but may be able to go to [place] for treatment. [place] AXIS I 1. Major depressive disorder, recurrent type, nonpsychotic. 2. Posttraumatic stress disorder 3. Polysubstance use disorder including methamphetamine, opiates, and alcohol.. 4. 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 AXIS III Chronic pain. AXIS IV Stressors are noted for homelessness, substance use AXIS V Global assessment of functioning of current 35. Medications 1. Escitalopram 10mg daily 2. Continue Quetiapine 200 mg nightly 3. Quetiapine 50 mg as needed for anxiety or agitation 4. Mirtazapine 30mg po nightly Treatments 1. The patient is admitted to the inpatient unit and will be provided a safe and secure environment. 2. The patient is denying current active suicidality and is not in need of a one-to-one at this time. He is agreeing to notify us should he have any acute suicidal or homicidal thoughts. 3. The patient is encouraged to participate with group and milieu activities. 4. The patient will be seen by the treatment team on a daily basis to assess symptoms, side effects and response to treatment. 5. Escitalopram 10mg for PTSD and depression. 6. Quetiapine will be continued at 200 mg at bedtime 7. Restart Mirtazapine at 30mg hs 8. Previous recommendation for intake with [place] [facility] dependency treatment program. Program indicates concern that patient did not complete treatment and would like copy of note and most recent labs. LFTs WNL Hep C quant is still pending. 9. The patient will continue to work on discharge planning with [facility] as noted above 10. Anticipated length of stay is 3-5 days. Inder Reynolds MD Oct 15, 2016 00:05
[2016-10-15] MEDS: Fluticasone 0.05% 15 Spray/2 Gm 16 Gm Nasal Spray NASAL SCH ×2 (08:06→21:16)
[2016-10-15] MEDS: Multivit-Miner-Folic Acid-Iron Tablet PO SCH (08:06)
[2016-10-15 14:13] VITALS: BP 113/78; PULSE 75; RESP 16
--- NOTE | 2016-10-15 18:22 | PCM.PNPSY ---
Subjective Date of Service Oct 15, 2016 Subjective The patient reports that he is feeling "pretty good" today. He denies side effects to medications. He reports although he slept well he did not feel rested. He reported that he felt that he had to force himself to eat but nevertheless ate dinner breakfast and lunch. The patient plans to discharge in the morning and hopes to have follow-up with [facility] upon discharge. His HCV quantitative results showed no HCV detected. Sleep: 7 hrs Appetite: "Ate some of my dinner, breakfast and lunch." Suicidal and homicidal ideation: Denies Auditory hallucinations: Denies Visual hallucinations: Denies Other Psychotic Symptoms: Denies Anxiety: 05/28 Depression: 05/28 Current Medications Current Medications Mirtazapine 30 mg HS PO Last administered on 10/14/16t 21:38; Admin Dose 30 MG; Start 10/13/16 at 21:00 Mental Status Exam Vital Signs Vital Signs Date Time Temp Pulse Resp B/P Pulse Ox O2 Delivery O2 Flow Rate FiO2 10/15/16 14:13 36.1 75 16 113/78 Appearance: Neat/well groomed Attitude: Cooperative, Guarded Behavior: No unusual behavior Affect: Restricted Mood: Euthymic Thought Process/Associations: Logical/Sequential, Goal Directed Speech Production: Normal Speech Rate: Normal Speech Articulation: Normal Thought Content: Negativistic Danger to Self/Suicidal Ideati: None Danger to Others: None Hallucinations: Auditory (Denies), Visual (Denies) Consciousness: Alert Orientation: Person, Place, Date, Situation Memory: Grossly Intact Estimate Intellectual Function: Average Basis for IQ estimate: Awareness current events, Word use/vocabulary Attention/Concentration & Cogn: Grossly Intact Insight: Limited Judgement: Limited Result Diagram: 10/13/16182110/13/161821 Mental Health Plan The patient is a 61-year-old male from [place], [facility], who was admitted on a voluntary basis through the emergency department with report of suicidal ideation with plan and intent to step in front of traffic or to use his guns that are evidently put away. The patient reportedly presented under the influence of methamphetamine, reporting daily use over the past 1-2 years, with concomitant usage of THC, and alcohol, drinking 4-5 half pints per day. The patient reports some improvement in symptoms but is still experiencing depression and anxiety but now denying visual and auditory hallucinations. The patient's suicidal thoughts appear to be predicated on obtaining appropriate treatment and housing. The patient is however making attempts at finding outside housing. Today, he is reporting that he continued to experience the "leg jerking" he had attributed to mirtazapine although it was discontinued yesterday. He is now willing to cross-taper with escitalopram. He may be able to be placed in [place] per his report. Still have not received call back from [place] intake. Patient reports mood improved. Patient reports no side effects from escitalopram. Patient negativistic, but denies current SI. Patient has been denied crisis respite, but may be able to go to [place] for treatment as his HCV results are negative. [place] AXIS I 1. Major depressive disorder, recurrent type, nonpsychotic. 2. Posttraumatic stress disorder 3. Polysubstance use disorder including methamphetamine, opiates, and alcohol.. 4. 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 AXIS III Chronic pain. AXIS IV Stressors are noted for homelessness, substance use AXIS V Global assessment of functioning of current 40. Medications 1. Escitalopram 10mg daily 2. Continue Quetiapine 200 mg nightly 3. Quetiapine 50 mg as needed for anxiety or agitation 4. Mirtazapine 30mg po nightly Treatments 1. The patient is admitted to the inpatient unit and will be provided a safe and secure environment. 2. The patient is denying current active suicidality and is not in need of a one-to-one at this time. He is agreeing to notify us should he have any acute suicidal or homicidal thoughts. 3. The patient is encouraged to participate with group and milieu activities. 4. The patient will be seen by the treatment team on a daily basis to assess symptoms, side effects and response to treatment. 5. Escitalopram 10mg for PTSD and depression. 6. Quetiapine will be continued at 200 mg at bedtime 7. Restart Mirtazapine at 30mg hs 8. Previous recommendation for intake with [place] [facility] dependency treatment program. Program indicates concern that patient did not complete treatment and would like copy of note and most recent labs. LFTs WNL Hep C quant negative, blood. Sent to treatment center per patient request. 9. The patient will continue to work on discharge planning with [facility] as noted above 10. Anticipated length of stay is 3-5 days. Inder Reynolds MD Oct 15, 2016 18:22
[2016-10-15] MEDS: Lidocaine Topical 5% Patch TOPICAL SCH (21:16)
[2016-10-16] MEDS: Multivit-Miner-Folic Acid-Iron Tablet PO SCH (08:15)
[2016-10-16] MEDS: Fluticasone 0.05% 15 Spray/2 Gm 16 Gm Nasal Spray NASAL SCH (08:16)
[2016-10-16] MEDS ORDERED: ESCI10TA52 PO (11:00)
[2016-10-16] MEDS ORDERED: MIRT30TA6 PO (11:00)
[2016-10-16] MEDS ORDERED: FLUT16SP NASAL (11:05)
[2016-10-16] MEDS ORDERED: QUET100T69 PO (11:05)
--- NOTE | 2016-10-16 16:10 | PCM.DC.MED ---
Discharge Summary Date of Service Oct 16, 2016 Dates of Hospitalization Date of Hospital Admission Sep 20, 2016 at 12:51 Date of Discharge: Oct 16, 2016 Providers: Admitting Physician: Janak Martinez MD Primary Care Physician: Maddi,[facility] Attending Physician: Janak Martinez MD Diagnosis at Time of Discharge Diagnosis at Time of Discharge MDD Recurrent nonpsychotic PTSD chronic Polysubstance Use including opiate, meth Alcohol Use DO Malingering Brief History According to Dr. Arreola note from 09/21/2016: IDENTIFICATION OF PATIENT: The patient is a 61-year-old male from [place], [facility], who was admitted on a voluntary basis through the emergency department with significant concern of suicidal ideation with plan and intent to step in front of traffic or to use his guns that are evidently put away. The patient reportedly presented under the influence of methamphetamine with open identification of usage on a daily basis over the past 1-2 years, also concomitant usage of THC, and alcohol, drinking 4-5 half pints per day. CHIEF COMPLAINT: "I really do not want to talk about it." This is per patient report. HISTORY OF PRESENT ILLNESS: As stated above, the patient is a 61-year-old male who was admitted on a woman who voluntary basis due to a significant altered mental status, concerns of safety including suicidal ideation with intent and plan, per his own report, with director of social work through the emergency department. The patient has been identified as homeless over the past 8-9 months. He is evidently staying with friends in a tent along the [place]. He states that he is , but his has placed a restraining order. He did admit to usage of methamphetamine on a daily basis with inhalant usage primary. No IV injection. He denies any history of heroin or further opiate abuse. He did admit to consuming 4-5 half pints per day. He reports his last drink was within the past 24 hours. His U tox screen was positive for methamphetamine. In reviewing further history, the patient evidently is 90% connected with service benefits. He does have a history of previous enlistment in the [employer]. [facility], per director of social work report. On interview with myself, the patient essentially was unwilling to complete the exam. He made the repeated identification that he has already spoken to nurses. He does not want to talk about the details. He reportedly has been sleeping in his room since his arrival and has been med compliant. Hospital Course The patient was initially admitted and placed on his current medications. Due to ongoing reports of depressed mood, mirtazapine was titrated to 45mg. Patient reported leg jerks and attributed them to the medication and would not take further. The patient was offered cross taper to escitalopram but declined. He was placed on escitalopram 10mg and noted no reduction in leg jerks but poor sleep and requested return of mirtazapine which was restarted at 30mg with plan to continue for 2 weeks and lower or discontinue. Quetiapine was titrated to a final dose of 200mg with as needed use of 50mg tabs during daytime due to reports of paranoia and seeing objects in his periphery and believing people to be following him. Inpatient hospitalization appeared to worsen dependency issues and inpatient hospitalization should be avoided in the future where possible. At the time of discharge, the patient was reporting his mood was, "a little anxiety... Being alone and not having all these friendships. My depression is okay, but I am still a little tired." Sleep was reported as "all right," 6.25 hours per staff. Appetite was reported as "forcing myself to eat" but reports eating all meals. His anxiety was reported as 6/10 and his depression as 2/10. He denied any side effects. He denied auditory or visual hallucinations and any thought, intent or plan of hurting himself or others. Exam Vital Signs (Last) Date Time Temp Pulse Resp B/P Pulse Ox O2 Delivery O2 Flow Rate FiO2 10/15/16 14:13 36.1 75 16 113/78 Exam Discharge Mental Status Exam Appearance: Neat/well groomed Attitude: Cooperative, Guarded Behavior: No unusual behavior Affect: Restricted Mood: Euthymic Thought Process/Associations: Logical/Sequential, Goal Directed Speech Production: Normal Speech Rate: Normal Speech Articulation: Normal Thought Content: Negativistic Danger to Self/Suicidal Ideation: None Danger to Others: None Hallucinations: Auditory (Denies), Visual (Denies) Consciousness: Alert Orientation: Person, Place, Date, Situation Memory: Grossly Intact Estimate Intellectual Function: Average Basis for IQ estimate: Awareness current events, Word use/vocabulary Attention/Concentration & Cognition: Grossly Intact Insight: Fair Judgement: Fair Test 09/19/16 17:35 09/20/16 07:49 09/20/16 07:50 10/13/16 18:22 Lactic Acid Level 1.1mmol/L (0.4-2.0) Thyroid Stimulating Hormone (TSH) 0.718uIU/mL (0.450-4.500) Urine Color Yellow (YELLOW) Urine Appearance Hazy (CLEAR,HAZY) Urine pH 6.0 (5.0-8.0) Urine Specific [place] 1.010 (1.003-1.035) Urine Protein Negativemg/dL (NEG,TRACE) Urine Glucose (UA) Negativemg/dL (NEGATIVE) Urine Ketones Negativemg/dL (NEGATIVE) Urine Occult Blood Negative (NEGATIVE) Urine Nitrite Negative (NEGATIVE) Urine Bilirubin Negative (NEGATIVE) Urine Urobilinogen Normalmg/dL (NORMAL) Urine Leukocyte Esterase Negative (NEGATIVE) Urine RBC 0-2/hpf (0-2) Urine WBC 0-5/hpf (0-5) Urine Epithelial Cells Occasional/hpf (NONE-MOD) Urine Crystals None seen (NONE SEEN) Urine Bacteria None/hpf (NONE-FEW) Urine Hyaline Casts None/lpf (NONE) Urine Granular Casts None seen (NONE SEEN) Urine Waxy Casts None seen (NONE SEEN) Urine Red Blood Cell Casts None seen (NONE SEEN) Urine White Blood Cell Casts None seen (NONE SEEN) Urine Mucus None seen (None Seen) Urine Trichomonas None seen (NONE SEEN) Urine Yeast None (NONE SEEN) Urinalysis Comment None Urine Culture Reflexed Not indicated Hold Galdamez Top Tube Received (Received) White Blood Count 5.5th/mm3 (3.8-10.1) Red Blood Count 5.79mil/mm3 (4.40-5.80) Hemoglobin 14.7g/dL (13.8-17.2) Hematocrit 43.6% (41.0-50.0) Mean Corpuscular Volume 75.3fL (81-100) Mean Corpuscular Hemoglobin 25.4pg (27.0-35.0) Mean Corpuscular Hemoglobin Concent 33.7% (32.0-37.0) Red Cell Distribution Width 15.0% (12.3-15.4) Platelet Count 291bil/L (150-400) Neutrophils (%) (Auto) 29.6% (40-74) Lymphocytes (%) (Auto) 54.7% (14-46) Monocytes (%) (Auto) 11.9% (4-12) Eosinophils (%) (Auto) 3.4% (0-5) Basophils (%) (Auto) 0.2% (0-3) Sodium Level 136mEq/L (134-144) Potassium Level 4.3mEq/L (3.5-5.2) Chloride Level 100mEq/L (97-108) Carbon Dioxide Level 21mmol/L (18-29) Blood Urea Nitrogen 22mg/dL (6-24) Creatinine 0.85mg/dL (0.76-1.27) Estimat Glomerular Filtration Rate 98mL/min (>59) Glucose Level 113mg/dL (60-99) Calcium Level 9.8mg/dL (8.5-10.1) Total Bilirubin 0.2mg/dL (0.0-1.2) Aspartate Amino Transf (AST/SGOT) 19U/L (0-50) Alanine Aminotransferase (ALT/SGPT) 15U/L (0-44) Alkaline Phosphatase 81U/L (25-160) Total Protein 7.8g/dL (6.4-8.4) Albumin 4.4g/dL (3.4-5.0) Hepatitis C Virus Quantitation Hcv not detectedIU/mL Hepatitis C RNA (PCR) log10 (.) Hepatitis C Comment Comment (.) Discharge Medications Discharge Medications Escitalopram Oxalate (Escitalopram Oxalate) 10 Mg Tablet 10 MG PO DAILY Prescribed by: WEI REYNOLDS MD Fluticasone Propionate (Fluticasone Propionate Nasal) 16 Gm [place].susp 1 SPRAY NASAL BID Prescribed by: WEI REYNOLDS MD Mirtazapine (Mirtazapine) 30 Mg Tablet 30 MG PO HS Prescribed by: WEI REYNOLDS MD Vit#96/Ferrous Fum/FA ( Tablet) 1 Each Tablet 1 TABLET PO DAILY Prescribed by: CLAUDY ARREOLA Quetiapine Fumarate (Quetiapine Fumarate) 50 Mg Tablet 50 MG PO q4hr Prescribed by: CLAUDY ARREOLA Quetiapine Fumarate (Quetiapine Fumarate) 100 Mg Tablet 200 MG PO HS Prescribed by: WEI REYNOLDS MD Followup Plan Disposition: The patient is requesting discharge and there is no indication for further hospitalization at this time. The patient verbally consented to take the prescribed medications. The patient verbally expressed understanding of the risks, benefits, alternative treatment options, and risks of not taking the prescribed medication. The patient verbally expressed understanding of the medication instructions, that he will adhere to the prescribed medication, and that he will go to all aftercare scheduled appointments. Follow-up plan CT Provider: Dr. Saini [phone] on 10/22/16 at 10:[address] [place], [place] Discharge Diet: No restrictions Discharge Activity: No restrictions Patient Instructions Should you have any thoughts of harming yourself or others, please call the crisis line, your provider, 911, or go to the nearest Emergency Department. Do not change or discontinue your medications without discussing with your provider. You have been given a prescription for 30 days supply of your new medication Wei Reynolds MD Oct 16, 2016 16:10
== END 2016-10-16 12:10 | disposition home or self-care (01) | DRG 885 ==
LOC: SED 15:30 → MHC 09-20 12:45
PROVIDERS: ADMIT Psychiatry & Neurology Psychiatry; ATTEND Psychiatry & Neurology Psychiatry
DX: F33.2 Major depressive disorder, recurrent severe without psychotic features (principal); J18.9 Pneumonia, unspecified organism; E87.1 Hypo-osmolality and hyponatremia; R45.851 Suicidal ideations; F10.230 Alcohol dependence with withdrawal, uncomplicated; F43.12 Post-traumatic stress disorder, chronic; Z76.5 Malingerer [conscious simulation]; F17.210 Nicotine dependence, cigarettes, uncomplicated; F15.10 Other stimulant abuse, uncomplicated; Z59.0 Homelessness; G89.29 Other chronic pain; F41.1 Generalized anxiety disorder